=== PATIENT | female | born 1940 | race Caucasian/White ===

== ENCOUNTER 2017-03-06 17:35 | Inpatient (IN) | payer MEDICARE, BC ==
[2017-03-06] VITALS (7 sets, daily range): BP systolic 110–122; BP diastolic 52–81; PULSE 90–104; RESP 16–18; TEMP 100.1–100.7; O2SAT 94–100
[~2017-03-06] VITALS: Ht 160 cm; Wt 89.0 kg
--- NOTE | 2017-03-06 18:28 | RADRPT ---
EXAM DATE/TIME: 03/06/2017 18:21 [facility] COMPARISON: No previous studies available for comparison. INDICATIONS : Short of breath. MEDICAL HISTORY : None. SURGICAL HISTORY : None. ENCOUNTER: Initial ACUITY: 1 day PAIN SCORE: 7/10 LOCATION: Bilateral chest FINDINGS: A single view of the chest demonstrates the lungs to be symmetrically aerated without evidence of mas s, infiltrate or effusion. The cardiomediastinal contours are unremarkable. Osseous structures are intact. CONCLUSION: No acute cardiopulmonary disease demonstrated. All French MD on March 06, 2017 at 18:25 Board Certified Radiologist. This report was verified electronically.
[2017-03-06 18:36] LABS: AUTOMATED NEUTROPHIL # 3.8 TH/MM3 (1.8-7.7); BASOPHIL % 0.1 % (0.0-2.0); EOSINOPHIL # 0.1 TH/MM3 (0-0.4); HEMATOCRIT 32.9 % (35.0-46.0); HEMO FLAGS DIFF FINAL; LYMPHOCYTE # 0.3 TH/MM3 (1.0-4.8); MEAN CELL VOLUME 89.5 FL (80.0-100.0); MEAN CORPUSCULAR HEMOGLOBIN 28.2 PG (27.0-34.0); MEAN CORPUSCULAR HGB CONC 31.6 % (32.0-36.0); MONO % 7.8 % (0.0-8.0); NEUT % 83.1 % (16.0-70.0); PLATELET COUNT 157 TH/MM3 (150-450); RED BLOOD COUNT 3.67 MIL/MM3 (4.00-5.30); WHITE BLOOD COUNT 4.6 TH/MM3 (4.0-11.0)
[2017-03-06 18:53] LABS: ALT (GPT) 35 U/L (10-53)
[2017-03-06 18:55] LABS: ANION GAP 11 MEQ/L (5-15); AST (GOT) 42 U/L (15-37); BICARBONATE 23.2 MEQ/L (21.0-32.0); BLOOD UREA NITROGEN 62 MG/DL (7-18); CHLORIDE 98 MEQ/L (98-107); GLOMERULAR FILTRATION RATE 11 ML/MIN (>89); POTASSIUM 5.1 MEQ/L (3.5-5.1); SODIUM (NA) 132 MEQ/L (136-145)
[2017-03-06 18:56] LABS: ALKALINE PHOSPHATASE 119 U/L (45-117); TOTAL BILIRUBIN ADULT 0.7 MG/DL (0.2-1.0)
--- NOTE | 2017-03-06 19:15 | PD ---
HPI Chief Complaint: Respiratory Distress Time Seen by Provider: 18:12 Travel History International Travel<30 days: No Contact w/Intl Traveler<30days: No Traveled to known affect area: No History of Present Illness HPI 77-year-old female with previous history of COPD, hypertension, presents to the ER today because she is having worsening dyspnea on exertion and shortness of breath. She currently is in moderate respiratory distress, was put on BiPAP. She appears somewhat disoriented. She apparently had ran out of her oxygen at home. Modifying Factors: None Associated Signs & Symptoms: Respiratory distress, disorientation Risk Factors: COPD history PFSH Social History Tobacco Use: Yes Allergies-Medications (Allergen,Severity, Reaction): Coded Allergies: No Known Allergies (Unverified , 03/06/17) Reported Meds & Prescriptions Reported Meds & Active Scripts Active Reported Breo Ellipta Inh (Fluticasone/Vilanterol) 100-25 Mcg/Act Inh 1 Puff INH DAILY Use daily at the same time. Albuterol (Albuterol Sulfate) 2 Mg Tab 2 Mg PO TID Oxycodone (Oxycodone HCl) 10 Mg Tab 10 Mg PO Q4HR Furosemide 40 Mg Tab 40 Mg PO DAILY Quinapril-Hydrochlorothiazide 20-12.5 Mg Tab 1 Tab PO DAILY Aspir-81 (Aspirin) 81 Mg Tabdr Omeprazole 20 Mg Cap Magnesium (Magnesium Oxide) 400 Mg Tablet 250 Mg PO DAILY Cerovite Senior (Multiple Vitamins W/ Minerals) 1 Tab Tab 10 Meq PO DAILY Gabapentin 300 Mg Cap 300 Mg PO BID Metformin (Metformin HCl) 500 Mg Tab 500 Mg PO BIDPC With meals Glimepiride 2 Mg Tab 2 Mg PO BIDAC Review of Systems ROS Limitations: Altered Mental Status Physical Exam Narrative GENERAL: Elderly female patient who is well-developed, in moderate respiratory distress. On BiPAP. Lethargic. SKIN: Focused skin assessment warm/dry. HEAD: Atraumatic. Normocephalic. EYES: Pupils equal and round. No scleral icterus. No injection or drainage. ENT: No nasal bleeding or discharge. Mucous membranes pink and moist. NECK: Trachea midline. No JVD. CARDIOVASCULAR: Regular rate and rhythm. No murmur appreciated. RESPIRATORY: Moderate accessory muscle use. Basilar crackles bilaterally. Breath sounds equal bilaterally. GASTROINTESTINAL: Abdomen soft, non-tender, nondistended. Hepatic and splenic margins not palpable. MUSCULOSKELETAL: No obvious deformities. No clubbing. No cyanosis. Bilateral pitting edema the legs. NEUROLOGICAL: Lethargic. No obvious cranial nerve deficits. Motor grossly within normal limits. Normal speech. PSYCHIATRIC: Appropriate mood and affect; insight and judgment normal. Data Data Last Documented VS Vital Signs Date Time Temp Pulse Resp B/P Pulse Ox O2 Delivery O2 Flow Rate FiO2 03/06/17 19:33 96 BiPAP 30 03/06/17 19:33 94 03/06/17 19:33 03/06/17 17:40 100.1 Orders Complete Blood Count With Diff (03/06/17 18:09) Comprehensive Metabolic Panel (03/06/17 18:09) B-Type Natriuretic Peptide (03/06/17 18:09) Iv Access Insert/Monitor (03/06/17 18:09) Ecg Monitoring (03/06/17 18:09) Oximetry (03/06/17 18:09) Oxygen Administration (03/06/17 18:09) Chest, Single Ap (03/06/17 18:09) Lactic Acid Sepsis Protocol (03/06/17 18:12) Blood Culture (03/06/17 18:12) Arterial Blood Gas (Abg) (03/06/17 ) Resp Bipap / Cpap Non Invas Vt (03/06/17 ) Furosemide Inj (Lasix Inj) (03/06/17 19:30) Ventilation & Perfusion Scan (03/06/17 19:16) Methylprednisolone So Succ Inj (Solumedr (03/06/17 19:30) Albuterol-Ipratropium Neb (Duoneb Neb) (03/06/17 19:30) Labs Laboratory Tests Test 03/06/17 03/06/17 03/06/17 18:10 18:26 18:32 White Blood Count 4.6 TH/MM3 Red Blood Count 3.67 MIL/MM3 Hemoglobin 10.4 GM/DL Hematocrit 32.9 % Mean Corpuscular Volume 89.5 FL Mean Corpuscular Hemoglobin 28.2 PG Mean Corpuscular Hemoglobin 31.6 % Concent Red Cell Distribution Width 17.0 % Platelet Count 157 TH/MM3 Mean Platelet Volume 8.4 FL Neutrophils (%) (Auto) 83.1 % Lymphocytes (%) (Auto) 7.0 % Monocytes (%) (Auto) 7.8 % Eosinophils (%) (Auto) 2.0 % Basophils (%) (Auto) 0.1 % Neutrophils # (Auto) 3.8 TH/MM3 Lymphocytes # (Auto) 0.3 TH/MM3 Monocytes # (Auto) 0.4 TH/MM3 Eosinophils # (Auto) 0.1 TH/MM3 Basophils # (Auto) 0.0 TH/MM3 CBC Comment DIFF FINAL Differential Comment Sodium Level 132 MEQ/L Potassium Level 5.1 MEQ/L Chloride Level 98 MEQ/L Carbon Dioxide Level 23.2 MEQ/L Anion Gap 11 MEQ/L Blood Urea Nitrogen 62 MG/DL Creatinine 4.04 MG/DL Estimat Glomerular Filtration 11 ML/MIN Rate Random Glucose 165 MG/DL Calcium Level 8.3 MG/DL Total Bilirubin 0.7 MG/DL Aspartate Amino Transf 42 U/L (AST/SGOT) Alanine Aminotransferase 35 U/L (ALT/SGPT) Alkaline Phosphatase 119 U/L B-Type Natriuretic Peptide 80 PG/ML Total Protein 7.2 GM/DL Albumin 3.1 GM/DL Blood Gas Puncture Site LT RADIAL Blood Gas Patient Temperature 98.6 Blood Gas HCO3 22 mmol/L Blood Gas Base Excess -3.7 mmol/L Blood Gas Oxygen Saturation 98 % Arterial Blood pH 7.30 Arterial Blood Partial 45 mmHg Pressure CO2 Arterial Blood Partial 244 mmHG Pressure O2 Arterial Blood Oxygen Content 15.4 Vol % Arterial Blood 1.0 % Carboxyhemoglobin Arterial Blood Methemoglobin 0.6 % Blood Gas Hemoglobin 10.8 G/DL Oxygen Delivery Device BIPAP Blood Gas Ventilator Setting IPAP 10/EPAP 5 Blood Gas Inspired Oxygen 60 % Lactic Acid Level 1.1 mmol/L MDM Medical Decision Making Medical Screen Exam Complete: Yes Emergency Medical Condition: Yes Medical Record Reviewed: Yes Interpretation(s) Last 24 hours Impressions Chest X-Ray 03/06/17 0579 Signed Impressions: Service Date/Time: Monday, March 06, 2017 18:21 - CONCLUSION: No acute cardiopulmonary disease demonstrated. All French MD Laboratory Tests Test 03/06/17 18:10 Red Blood Count 3.67 MIL/MM3 (4.00-5.30) Hemoglobin 10.4 GM/DL (11.6-15.3) Hematocrit 32.9 % (35.0-46.0) Mean Corpuscular Hemoglobin 31.6 % Concent (32.0-36.0) Neutrophils (%) (Auto) 83.1 % (16.0-70.0) Lymphocytes (%) (Auto) 7.0 % (9.0-44.0) Lymphocytes # (Auto) 0.3 TH/MM3 (1.0-4.8) Sodium Level 132 MEQ/L (136-145) Blood Urea Nitrogen 62 MG/DL (7-18) Creatinine 4.04 MG/DL (0.50-1.00) Estimat Glomerular Filtration 11 ML/MIN (>89) Rate Random Glucose 165 MG/DL (74-106) Calcium Level 8.3 MG/DL (8.5-10.1) Aspartate Amino Transf 42 U/L (15-37) (AST/SGOT) Alkaline Phosphatase 119 U/L (45-117) Albumin 3.1 GM/DL (3.4-5.0) Differential Diagnosis Respiratory distress, lethargicCHF versus pneumonia versus COPD exacerbation Narrative Course Patient was given Lasix for her edema and Solu-Medrol and nebulizers were also given after chest x-ray did not show any signs of CHF. At this point, considering patient has recently traveled there is concern about possible underlying PE and VQ scan was also ordered. Patient's lab work shows significant renal issues and it is unclear whether this is new or old since patient has never been here before. Physician Communication Physician Communication Case is signed out to Dr. Dewey at 7:30 PM pending VQ scan and admitted. Diagnosis Primary Impression: Respiratory distress Additional Impression: Acute renal failure Admitting Information Admitting Physician Requests: Admit Carrie Arroyo MD Mar 06, 2017 19:15
[2017-03-06 19:22] LABS: BLOOD GAS BASE EXCESS -3.7 mmol/L (-2-2); BLOOD GAS HCO3 22 mmol/L (22-26); BLOOD GAS METHEMOGLOBIN 0.6 % (0-2); BLOOD GAS O2 HGB SATURATION 98 % (90-100); BLOOD GAS OXYGEN CONTENT 15.4 Vol % (12.0-20.0); BLOOD GAS PCO2 45 mmHg (38-42); BLOOD GAS PO2 244 mmHG (61-120); BLOOD GAS TOTAL HGB 10.8 G/DL (12.0-16.0); CRITICAL VALUE NO; TEMP CORR TO 98.6
[2017-03-06 19:23] LABS: DRAW SITE LT RADIAL; FIO2 60 %; NUMBER OF ARTERIAL PUNCTURES 1; OXYGEN DEVICE BIPAP; STAT YES; ULNAR PULSE PRESENT; VENT SETTINGS IPAP 10/EPAP 5
[2017-03-06] MEDS ORDERED: FURO40TA PO (19:28)
[2017-03-06] MEDS ORDERED: METF500T PO (19:28)
[2017-03-06] MEDS ORDERED: GABA300C5 PO ×2 (19:28→22:06)
[2017-03-06] MEDS ORDERED: ASPI81TA81 (19:28)
[2017-03-06] MEDS ORDERED: CEROTAB2 PO (19:28)
[2017-03-06] MEDS ORDERED: OMEP20CA2 (19:28)
[2017-03-06] MEDS ORDERED: GLIM2TAB PO (19:28)
[2017-03-06] MEDS ORDERED: FLUT1INH INH (19:28)
[2017-03-06] MEDS ORDERED: ALBU2TAB4 PO (19:28)
[2017-03-06] MEDS ORDERED: OXYC-395 PO (19:28)
[2017-03-06] MEDS ORDERED: MAGN400T24 PO (19:28)
[2017-03-06] MEDS ORDERED: QUIN20TA2 PO (19:28)
[2017-03-06] MEDS ORDERED: FUROSEMIDE 40 MG/4 ML VIAL IV PUSH ONE (19:30)
[2017-03-06] MEDS ORDERED: methylPREDNISolone SOD SUCC 125 MG/2 ML VIAL IV PUSH ONE (19:30)
[2017-03-06] MEDS: RESP: ALBUTEROL 2.5 MG/IPRATROPIUM 0.5 MG NEB (SCH) INH ×2 (19:35→19:36)
--- NOTE | 2017-03-06 20:41 | RADRPT ---
EXAM DATE/TIME: 03/06/2017 20:01 [facility] COMPARISON: No previous studies available for comparison. INDICATIONS : Altered mental status. RADIATION DOSE: 38.08 CTDIvol (mGy) MEDICAL HISTORY : Chronic obstructive pulmonary disease. Diabetes mellitus type 2. Hypertension.Skin cancer. SURGICAL HISTORY : Cholecystectomy. Coronary stent. ENCOUNTER: Initial ACUITY: 1 day PAIN SCALE: 0/10 LOCATION: cranial TECHNIQUE: Multiple contiguous axial images were obtained of the head. Using automated exposure control and adj ustment of the mA and/or kV according to patient size, radiation dose was kept as low as reasonably a chievable to obtain optimal diagnostic quality images. FINDINGS: CEREBRUM: The ventricles are normal for age. No evidence of midline shift, mass lesion, hemorrhage or acute in farction. No extra-axial fluid collections are seen. POSTERIOR FOSSA: The cerebellum and brainstem are intact. The 4th ventricle is midline. The cerebellopontine angle i s unremarkable. EXTRACRANIAL: The visualized portion of the orbits is intact. Plate device in the inferior medial left orbit. SKULL: The calvaria is intact. No evidence of skull fracture. CONCLUSION: No acute findings in the brain. Vahid Wiseman MD on March 06, 2017 at 20:38 Board Certified Radiologist. This report was verified electronically.
--- NOTE | 2017-03-06 21:08 | PD ---
Data Data Last Documented VS Vital Signs Date Time Temp Pulse Resp B/P Pulse Ox O2 Delivery O2 Flow Rate FiO2 03/06/17 21:43 100.7 104 18 118/60 99 BiPAP 30 Orders Complete Blood Count With Diff (03/06/17 18:09) Comprehensive Metabolic Panel (03/06/17 18:09) B-Type Natriuretic Peptide (03/06/17 18:09) Iv Access Insert/Monitor (03/06/17 18:09) Ecg Monitoring (03/06/17 18:09) Oximetry (03/06/17 18:09) Oxygen Administration (03/06/17 18:09) Chest, Single Ap (03/06/17 18:09) Lactic Acid Sepsis Protocol (03/06/17 18:12) Blood Culture (03/06/17 18:12) Arterial Blood Gas (Abg) (03/06/17 ) Resp Bipap / Cpap Non Invas Vt (03/06/17 ) Furosemide Inj (Lasix Inj) (03/06/17 19:30) Ventilation & Perfusion Scan (03/06/17 19:16) Methylprednisolone So Succ Inj (Solumedr (03/06/17 19:30) Albuterol-Ipratropium Neb (Duoneb Neb) (03/06/17 19:30) Ct Brain W/O Iv Contrast(Rout) (03/06/17 19:46) Vancomycin Inj (Vancomycin Inj) (03/06/17 21:15) Piperacil-Tazo 2.25 Gm Premix (Zosyn 2.2 (03/06/17 22:30) Urinary Catheter Management MICA.Q8H (03/06/17 21:15) Urinalysis - C+S If Indicated (03/06/17 21:19) Ct Thorax/ Chest Wo Iv Contras (03/06/17 ) Admit Order (Ed Use Only) (03/06/17 ) Labs Laboratory Tests Test 03/06/17 03/06/17 03/06/17 03/06/17 18:10 18:26 18:32 21:40 White Blood Count 4.6 TH/MM3 Red Blood Count 3.67 MIL/MM3 Hemoglobin 10.4 GM/DL Hematocrit 32.9 % Mean Corpuscular Volume 89.5 FL Mean Corpuscular Hemoglobin 28.2 PG Mean Corpuscular Hemoglobin 31.6 % Concent Red Cell Distribution Width 17.0 % Platelet Count 157 TH/MM3 Mean Platelet Volume 8.4 FL Neutrophils (%) (Auto) 83.1 % Lymphocytes (%) (Auto) 7.0 % Monocytes (%) (Auto) 7.8 % Eosinophils (%) (Auto) 2.0 % Basophils (%) (Auto) 0.1 % Neutrophils # (Auto) 3.8 TH/MM3 Lymphocytes # (Auto) 0.3 TH/MM3 Monocytes # (Auto) 0.4 TH/MM3 Eosinophils # (Auto) 0.1 TH/MM3 Basophils # (Auto) 0.0 TH/MM3 CBC Comment DIFF FINAL Differential Comment Sodium Level 132 MEQ/L Potassium Level 5.1 MEQ/L Chloride Level 98 MEQ/L Carbon Dioxide Level 23.2 MEQ/L Anion Gap 11 MEQ/L Blood Urea Nitrogen 62 MG/DL Creatinine 4.04 MG/DL Estimat Glomerular Filtration 11 ML/MIN Rate Random Glucose 165 MG/DL Calcium Level 8.3 MG/DL Total Bilirubin 0.7 MG/DL Aspartate Amino Transf 42 U/L (AST/SGOT) Alanine Aminotransferase 35 U/L (ALT/SGPT) Alkaline Phosphatase 119 U/L B-Type Natriuretic Peptide 80 PG/ML Total Protein 7.2 GM/DL Albumin 3.1 GM/DL Blood Gas Puncture Site LT RADIAL Blood Gas Patient Temperature 98.6 Blood Gas HCO3 22 mmol/L Blood Gas Base Excess -3.7 mmol/L Blood Gas Oxygen Saturation 98 % Arterial Blood pH 7.30 Arterial Blood Partial 45 mmHg Pressure CO2 Arterial Blood Partial 244 mmHG Pressure O2 Arterial Blood Oxygen Content 15.4 Vol % Arterial Blood 1.0 % Carboxyhemoglobin Arterial Blood Methemoglobin 0.6 % Blood Gas Hemoglobin 10.8 G/DL Oxygen Delivery Device BIPAP Blood Gas Ventilator Setting IPAP 10/EPAP 5 Blood Gas Inspired Oxygen 60 % Lactic Acid Level 1.1 mmol/L Urine Color YELLOW Urine Turbidity HAZY Urine pH 5.0 Urine Specific [place] 1.015 Urine Protein 30 mg/dL Urine Glucose (UA) NEG mg/dL Urine Ketones NEG mg/dL Urine Occult Blood NEG Urine Nitrite NEG Urine Bilirubin NEG Urine Urobilinogen LESS THAN 2.0 MG/DL Urine Leukocyte Esterase NEG Urine RBC 1 /hpf Urine WBC 4 /hpf Urine Squamous Epithelial <1 /hpf Cells Urine Bacteria RARE /hpf Urine Mucus FEW /lpf Microscopic Urinalysis Comment CULT NOT INDICATED Urine Eosinophils NONE SEEN /HPF Urine Random Creatinine 102.9 MG/DL Urine Random Sodium 42 MEQ/L [facility] Supervised Visit with MONET: No Narrative Course Patient care assumed from Dr. Arroyo at 1900. This is a 77-year-old female who presents the emergency department with altered mental status and shortness of breath. Has a history of COPD from occupational chemical exposure in the past. Per the daughter they're visiting from out of state and recently had a long car ride. Dr. Arroyo had recommended a follow-up a VQ scan already ordered reassess the patient and consider for admission. The patient has been febrile, my initial evaluation is fairly somnolent on BiPAP. Her overall GCS is [id number]. She is also having waxing and waning mental status. Initial workup is negative for source of fever. V/Q scan did show ventilation defect without a ventilation perfusion mismatch. Low risk for pulmonary embolism. The patient underwent a noncontrast CT of the chest which did show suspicion for pneumonia. The patient was started on broad-spectrum antibiotics. Given that she is altered with need for BiPAP ventilation the patient was discussed with Dr. Javed for admission who is agreeable. Critical Care Narrative Aggregate critical care time was 35 minutes. Time to perform other separately billable procedures was not included in the critical care time. My time did not include minutes spent treating any other patients simultaneously or on activities that did not directly contribute to the patient's treatment. The services I provided to this patient were to treat and/or prevent clinically significant deterioration that could result in: , disability, organ failure. I provided critical care services requiring my management, as noted below: Chart data review, documentation time, medication orders and management, vital sign assessments/reviewing monitor data, ordering and reviewing lab tests, ordering and interpreting/reviewing x-rays and diagnostic studies, care of the patient and discussion of the patient with the admitting physicians. Diagnosis Primary Impression: Respiratory distress Additional Impression: Acute renal failure Qualified Code: N17.9 - Acute renal failure, unspecified acute renal failure type Admitting Information Admitting Physician Requests: Admit Condition: Stable Salbador Dewey MD Mar 06, 2017 21:07
--- NOTE | 2017-03-06 21:09 | RADRPT ---
EXAM DATE/TIME: 03/06/2017 20:34 [facility] COMPARISON: CHEST SINGLE AP, March 06, 2017, 18:21. INDICATIONS : Dyspnea and disoriented. DOSE: 8.8 mCi Tc99m MAA IV 1.2 mCi Tc99m DTPA aerosol MEDICAL HISTORY : Chronic obstructive pulmonary disease. Hypertension. Diabetes mellitus type 2. Smoker. SURGICAL HISTORY : Cholecystectomy. ENCOUNTER: Initial ACUITY: 1 day PAIN SCALE: 0/10 LOCATION: chest TECHNIQUE: Following five minutes of tidal breathing of DTPA aerosol, planar images of the lungs were performed in eight projections. The patient was then injected with MAA, and eight-view perfusion scan was perf ormed. FINDINGS: There is moderate central deposition of aerosol in the hilar region. There is delivery of aerosol to the periphery of the lobe left lung and the periphery of the right mid and upper lung. There are mu ltiple subsegmental ventilatory defects involving the left lung base.. On the perfusion scan, there is activity seen to the periphery of the left lung. At the right lung b ase, there is some decreased perfusion, however, the perfusion defects are smaller than the ventilato ry defects in the same segments. No mismatched perfusion defects seen. CONCLUSION: 1. Matched ventilation/perfusion defects in the right lung base with the ventilatory defects larger t you the perfusion defects. 2. No mismatched perfusion defects. 3. The overall impression is of low probability pulmonary embolism. Vahid Wiseman MD on March 06, 2017 at 21:03 Board Certified Radiologist. This report was verified electronically.
[2017-03-06] MEDS ORDERED: VANCOMYCIN INJ 1,000 MG in SODIUM CHLOR 0.9% 250 ML INJ 250 ML IV ONE (21:15)
[2017-03-06 21:58] LABS: BACTERIA, URINE RARE /hpf; BLOOD, URINE NEG (NEG); COMMENT (UR) CULT NOT INDICATED; CULTURE IF INDICATED CULT NOT INDICATED; GLUCOSE,URINE NEG (NEG); KETONE, URINE NEG (NEG); MUCUS URINE FEW /lpf (OCC); NITRITE,URINE NEG (NEG); SQUAMOUS EPITHELIAL CELL URINE <1 /hpf (0-5); URINE COLOR YELLOW (YELLW/STRAW)
[2017-03-06] MEDS ORDERED: CARV25TA PO (22:06)
[2017-03-06] MEDS ORDERED: ATOR40TA16 PO (22:06)
[2017-03-06] MEDS ORDERED: MOBI15TA PO (22:06)
[2017-03-06] MEDS ORDERED: RESP: ALBUTEROL 2.5 MG/3 ML NEB (PRN) NEB (22:15)
[2017-03-06] MEDS ORDERED: PIPERACIL-TAZO 2.25 GM PREMIX 50 ML IV ONE (22:30)
[2017-03-06] MEDS: RESP: ALBUTEROL 2.5 MG/IPRATROPIUM 0.5 MG NEB (SCH) NEB (22:39)
--- NOTE | 2017-03-06 22:43 | HHI.HP ---
HPI Service Critical Care Medicine Primary Care Physician Non-Staff Admission Diagnosis Encephalopathy, Sepsis, Hypoxia. Diagnosis: Travel History International Travel<30 Days: No Contact w/Intl Traveler <30 Da: No Traveled to Known Affected Are: No History of Present Illness 77 yo WF with PMH of COPD on 4 L home O2, HTN, DM, HLD, peripheral neuropathy, CAD with prior stents who [place] [facility] [place] breath. Her daughter states she was not feeling well since 03/03, though may be related to allergies. Today she has been travelling in a car for about 8 hours as she and her family drove from [facility]. She started having a cough today, productive of brown sputum. Did not check her temperature. Denied chest pain. She got to the hotel and became dyspneic and could not get up from a bench where she stopped to rest. Her daughter states she was lethargic and confused. Sats were 92% in the field. She was placed on Bipap on arrival and administered Lasix 40 mg IV and Solu-Medrol 125 mg IV and DuoNeb. After on Bipap ~ 45 min ABG demonstrated hypercapnea with pH 7.30/PaCO2 45/PA O2 to 44. She remains on BiPAP 10 over 5 with FiO2 35%. Her mental status has improved significantly per discussion with RN in patient's daughter. She had a head CT that was negative. VQ scan showed low probability for PE. There is a ventilatory defect in the right base. CXR showed no significant infiltrate. CT chest noncontrast is pending. She denies chest pain or hemoptysis. She does not carry the diagnosis of CHF. She has chronic bipedal edema. Her daughter states her edema is actually currently better than usual. Review of Systems ROS Limitations: Clinical Condition Past Family Social History Allergies: Coded Allergies: No Known Allergies (Unverified , 03/06/17) Past Medical History COPD felt to be secondary to secondhand smoke exposure and occupational exposure. On 4 L nasal cannula. Followed by bag shaker in [place]. Diabetes Hypertension Hypercholesterolemia Peripheral neuropathy Coronary artery disease. Reportedly she has never experienced a myocardial infarction. She has had 2 stents about 10-15 years ago. Past Surgical History Cholecystectomy Bilateral knee arthroplasty Left rotator cuff repair Left hip arthroplasty ORIF of the orbit with metal plates Multiple hiatal hernia surgeries Reported Medications Quinapril/HCTZ 20/12.5 one by mouth daily Magnesium oxide 250 g by mouth daily Gabapentin 300 mg by mouth daily Albuterol 2 mg by mouth 3 times a day Carvedilol 25 mg by mouth twice a day Metformin 500 mg by mouth twice a day 301 puff inhaled daily Atorvastatin 40 g by mouth daily at bedtime Lasix 40 g by mouth daily Multivitamin 10 mEq by mouth daily Aspirin 81 mg by mouth daily Mobic 15 mg by mouth daily Oxycodone 10 g by mouth every 4 hours when necessary pain Omeprazole 20 mg by mouth daily Glimepiride 2 mg by mouth twice a day Family History She is unable to provide family medical history Social History She is a lifetime nonsmoker. She had significant secondhand smoke exposure from her second No alcohol or illicit drug use She used to work in a [employer] and reportedly has chemical exposure which is felt to contribute to her lung disease She is from [facility] Physical Exam Vital Signs Vital Signs Date Time Temp Pulse Resp B/P Pulse Ox O2 Delivery O2 Flow Rate FiO2 03/06/17 21:43 100.7 104 18 118/60 99 BiPAP 30 03/06/17 21:28 93 16 110/52 94 BiPAP 03/06/17 19:35 95 30 03/06/17 19:33 96 BiPAP 30 03/06/17 19:33 94 03/06/17 19:33 90 BiPAP 03/06/17 17:40 100 100 03/06/17 17:40 100.1 100 122/81 Physical Exam Pulse 95 blood pressure 110/52 sats 98% on BiPAP 10 over 5 with respiratory rate around 11 FiO2 35% GENERAL: Obese well-developed female who is laying in the ED stretcher on BiPAP. SKIN: Warm and dry, well perfused. HEAD: Atraumatic. Normocephalic. EYES: Pupils equal and round 2 mm reactive bilaterally. No scleral icterus. No injection or drainage. ENT: BiPAP mask in place. NECK: Trachea midline. No JVD appreciated CARDIOVASCULAR: Regular rate and rhythm, sinus rhythm on the monitor without murmurs rubs or gallops appreciated. Loud lung sounds mask cardiac exam somewhat. RESPIRATORY: Marked prolonged expiratory phase with coarse expiratory breath sounds. No Rales or rhonchi. GASTROINTESTINAL: Abdomen obese, soft, nontender nondistended. Suprapubic scar well-healed. : Castillo in place with yellow urine output. MUSCULOSKELETAL: Extremities without clubbing, cyanosis. 2+ pitting edema bilateral lower extremities. No calf tenderness. NEUROLOGICAL: Awake and alert on Bipap. Speech muffled by Bipap but otherwise sounds normal. Moves all extremities spontaneously and to commands. Strength is 5 out of 5 without focal deficit. Sensation intact. She is oriented to hospital. Thought the year was 2013. Recognizes her daughter Laboratory Laboratory Tests Test 03/06/17 03/06/17 03/06/17 03/06/17 18:10 18:26 18:32 21:40 White Blood Count 4.6 Red Blood Count 3.67 Hemoglobin 10.4 Hematocrit 32.9 Mean Corpuscular Volume 89.5 Mean Corpuscular Hemoglobin 28.2 Mean Corpuscular Hemoglobin 31.6 Concent Red Cell Distribution Width 17.0 Platelet Count 157 Mean Platelet Volume 8.4 Neutrophils (%) (Auto) 83.1 Lymphocytes (%) (Auto) 7.0 Monocytes (%) (Auto) 7.8 Eosinophils (%) (Auto) 2.0 Basophils (%) (Auto) 0.1 Neutrophils # (Auto) 3.8 Lymphocytes # (Auto) 0.3 Monocytes # (Auto) 0.4 Eosinophils # (Auto) 0.1 Basophils # (Auto) 0.0 CBC Comment DIFF FINAL Differential Comment Sodium Level 132 Potassium Level 5.1 Chloride Level 98 Carbon Dioxide Level 23.2 Anion Gap 11 Blood Urea Nitrogen 62 Creatinine 4.04 Estimat Glomerular Filtration 11 Rate Random Glucose 165 Calcium Level 8.3 Total Bilirubin 0.7 Aspartate Amino Transf 42 (AST/SGOT) Alanine Aminotransferase 35 (ALT/SGPT) Alkaline Phosphatase 119 B-Type Natriuretic Peptide 80 Total Protein 7.2 Albumin 3.1 Blood Gas Puncture Site LT RADIAL Blood Gas Patient Temperature 98.6 Blood Gas HCO3 22 Blood Gas Base Excess -3.7 Blood Gas Oxygen Saturation 98 Arterial Blood pH 7.30 Arterial Blood Partial 45 Pressure CO2 Arterial Blood Partial 244 Pressure O2 Arterial Blood Oxygen Content 15.4 Arterial Blood 1.0 Carboxyhemoglobin Arterial Blood Methemoglobin 0.6 Blood Gas Hemoglobin 10.8 Oxygen Delivery Device BIPAP Blood Gas Ventilator Setting IPAP 10/EPAP 5 Blood Gas Inspired Oxygen 60 Lactic Acid Level 1.1 Urine Color YELLOW Urine Turbidity HAZY Urine pH 5.0 Urine Specific [place] 1.015 Urine Protein 30 Urine Glucose (UA) NEG Urine Ketones NEG Urine Occult Blood NEG Urine Nitrite NEG Urine Bilirubin NEG Urine Urobilinogen LESS THAN 2.0 Urine Leukocyte Esterase NEG Urine RBC 1 Urine WBC 4 Urine Squamous Epithelial <1 Cells Urine Bacteria RARE Urine Mucus FEW Microscopic Urinalysis Comment CULT NOT INDICATED Date/Time Procedure Status Source Growth 03/06/17 18:20 Aerobic Blood Culture Received Blood Peripheral Pending 03/06/17 18:20 Anaerobic Blood Culture Received Blood Peripheral Pending Result Diagram: 03/06/17180903/06/17 1810 Assessment and Plan Assessment and Plan NEURO: Acute encephalopathy likely secondary to hypercapnia (improving) Peripheral neuropathy CT brain negative Held gabapentin 300 tid for now due to decreased mental status. When resume, will need to adjust dose for renal insufficiency. Hold oxycodone 10 q4 for now. Use 5 q6 hours prn, hold for excess sedation. RESP: Acute hypercapnic respiratory failure COPD Second hand smoke exposure Community acquired pneumonia BiPAP 10/5 35% and wean FIO2 as tolerated. Solu-Medrol 40 mg IV every 8. DuoNeb every 6 hours. Albuterol q2 hours prn wheezing. Abx as per below VQ low prob for PE 03/06 CT chest - bilateral infiltrates c/w pneumonia CV: Coronary artery disease with prior stents Hypertension Hyperlipidemia Follow-up 2-D echo BNP 80 Serial cardiac markers and EKG. Troponin 0.02. Aspirin daily Continue statin Hold coreg for now until determine hemodynamic stability Received Lasix 40 mg IV in the emergency department. Does not appear to require further diuresis. GI: Obesity Mild AST elevation. Hypoalbuminemia Nothing by mouth currently while on BiPAP. f/u abdominal u/s . FEN/RENAL: Hyponatremia Renal insufficiency ?chronicity Patient may have CKD but she is unaware of any history of that. Checked Urine eos, CPK, Fena 1.3 c/w intrinsic renal disease/ATN. Obtain renal u/s. Castillo in place. Monitor intake and output. Monitor electrolytes and replace as indicated. On 0.9 NaCl at 100 mm per hour ID: Acute right lower lobe pneumonia Received vancomycin and Zosyn in the emergency department. Will continue on Zosyn 2.25 IV every 6 hours adjusted for renal function, azithromycin for atypical coverage. Follow-up blood cultures. Obtain urine Legionella and pneumococcal antigen, sputum culture. UA negative for evidence of infection. HEME: Anemia of unknown chronicity Followed bilateral lower extremity ultrasound ENDO: Diabetes mellitus Hold metformin and glimepiride. Medium dose insulin sliding scale q4 hours. Monitor closely while on steroids, may need additional insulin coverage and/or quick steroid taper. PROPH: Heparin 5000 subcutaneous q12 for DVT prophylaxis. Protonix 40 mg daily for stress ulcer prophylaxis. ACCESS: Peripheral IV providing adequate access at this time. Daughter updated at bedside. Discussed with Dr. Dewey, ICU charge nurse, ED RN, RT. Full code CCT 55 minutes exclusive of separately billable procedures. Ritu Javed MD Mar 06, 2017 22:43
[2017-03-06] MEDS ORDERED: MISCELLANEOUS NURSING INFORMATION XX SCH (22:45)
[2017-03-06] MEDS ORDERED: oxyCODONE/ACETAMINOPHEN 5 MG/325 MG TAB PO PRN (22:45)
[2017-03-06] MEDS ORDERED: SODIUM CHLORIDE 0.9% FLUSH 10 ML FLUSH PRN (22:45)
[2017-03-06] MEDS ORDERED: SENNOSIDES 8.6 MG TAB PO PRN (22:45)
[2017-03-06] MEDS ORDERED: MAGNESIUM HYDROXIDE SUSP 30 ML CUP PO PRN (22:45)
[2017-03-06] MEDS ORDERED: ACETAMINOPHEN 325 MG TAB PO PRN (22:45)
[2017-03-06] MEDS ORDERED: CHLORHEXIDINE GLUCONATE 2 % 1 PACK (2 CLOTHS) TOP PRN (22:45)
[2017-03-06] MEDS ORDERED: BISACODYL 10 MG SUPP RECTAL PRN (22:45)
[2017-03-06] MEDS ORDERED: LACTULOSE SYRUP 20 GM/30 ML CUP PO PRN (22:45)
--- NOTE | 2017-03-06 23:19 | RADRPT ---
EXAM DATE/TIME: 03/06/2017 23:03 [facility] COMPARISON: No previous studies available for comparison. INDICATIONS : Dyspnea, cough. RADIATION DOSE: 8.71 CTDIvol (mGy) MEDICAL HISTORY : Diabetes mellitus type 2. Cardiovascular disease SURGICAL HISTORY : Cholecystectomy. ENCOUNTER: Initial ACUITY: 1 day PAIN SCALE: 5/10 LOCATION: chest TECHNIQUE: Volumetric scanning of the chest was performed. Using automated exposure control and adjustment of t he mA and/or kV according to patient size, radiation dose was kept as low as reasonably achievable to obtain optimal diagnostic quality images. FINDINGS: There are parenchymal infiltrates bilaterally within the lower lobes, right upper lobe parts of the r ight middle lobe. There is no pleural effusion. No appreciable pathological adenopathy is seen with in the mediastinum. Coronary artery calcifications are seen typically seen with CAD and need to be ev aluated clinically. Large hiatal hernia is seen. CONCLUSION: Bilateral infiltrates suspicious for pneumonia. Milan Huston MD on March 06, 2017 at 23:14 Board Certified Radiologist. This report was verified electronically.
[2017-03-06] MEDS ORDERED: DEXTROSE 50% IN WATER 50 ML VIAL(D50) IV PRN (23:45)
[2017-03-06] MEDS ORDERED: GLUCAGON 1 MG/ML VIAL OTHER PRN (23:45)
[2017-03-06] MEDS ORDERED: INSULIN ASPART SUPPLEMENTAL SCALE SQ SCH (23:45)
[2017-03-07] VITALS (23 sets, daily range): BP systolic 102–132; BP diastolic 54–69; PULSE 64–90; RESP 7–22; TEMP 97.2–98.9; O2SAT 93–100
[2017-03-07] MEDS: HEPARIN SODIUM - SQ 10,000 UNITS/ML VIAL SQ SCH ×3 (00:26→21:49)
[2017-03-07] MEDS: SODIUM CHLOR 0.9% 1000 ML INJ 1,000 ML IV SCH ×3 (00:28→18:33)
[2017-03-07] MEDS: ASPIRIN 81 MG CHEW TAB CHEW SCH ×2 (00:28→10:19)
[2017-03-07] MEDS ORDERED: INSULIN ASPART SUPPLEMENTAL SCALE SQ SCH (02:15)
[2017-03-07] MEDS ORDERED: DEXTROSE 50% IN WATER 50 ML VIAL(D50) IV PRN (02:15)
[2017-03-07] MEDS ORDERED: GLUCAGON 1 MG/ML VIAL OTHER PRN (02:15)
[2017-03-07] MEDS: AZITHROMYCIN INJ 500 MG in SODIUM CHLOR 0.9% 250 ML INJ 250 ML IV SCH ×2 (02:46→21:49)
[2017-03-07] MEDS: RESP: ALBUTEROL 2.5 MG/IPRATROPIUM 0.5 MG NEB (SCH) NEB ×4 (03:28→21:15)
[2017-03-07] MEDS: CHLORHEXIDINE GLUCONATE 2 % 1 PACK (2 CLOTHS) TOP SCH (03:43)
[2017-03-07] MEDS: PIPERACIL-TAZO 2.25 GM PREMIX 50 ML IV SCH ×4 (03:43→21:53)
[2017-03-07 04:32] LABS: AUTOMATED NEUTROPHIL # 7.9 TH/MM3 (1.8-7.7); BASOPHIL % 0.1 % (0.0-2.0); HEMATOCRIT 27.3 % (35.0-46.0); LYMPH % 3.7 % (9.0-44.0); LYMPHOCYTE # 0.3 TH/MM3 (1.0-4.8); MEAN CELL VOLUME 86.9 FL (80.0-100.0); MEAN CORPUSCULAR HEMOGLOBIN 29.4 PG (27.0-34.0); MEAN CORPUSCULAR HGB CONC 33.9 % (32.0-36.0); MONO % 2.9 % (0.0-8.0); NEUT % 93.3 % (16.0-70.0); PLATELET COUNT 167 TH/MM3 (150-450); RED BLOOD COUNT 3.15 MIL/MM3 (4.00-5.30); RED CELL DISTRIBUTION WIDTH 16.8 % (11.6-17.2); WHITE BLOOD COUNT 8.5 TH/MM3 (4.0-11.0)
[2017-03-07 04:36] LABS: HEMO FLAGS AUTO DIFF
--- NOTE | 2017-03-07 04:57 | RADRPT ---
EXAM DATE/TIME: 03/07/2017 04:28 [facility] COMPARISON: CT THORAX W/O CONTRAST, March 06, 2017, 23:03. CHEST SINGLE AP, March 06, 2017, 18:21. INDICATIONS : Shortness of breath. possible pulmonary disease. MEDICAL HISTORY : None. SURGICAL HISTORY : None. ENCOUNTER: Subsequent ACUITY: 2 days PAIN SCORE: 4/10 LOCATION: Bilateral chest FINDINGS: Mild left lung base atelectasis and/or infiltrate is seen. There is also slight haziness to the right middle lobe and perivascular structures not significantly changed The rest of the examination has no t significantly changed. CONCLUSION: No appreciable change in bilateral atelectasis and/or infiltrate mainly in the left lung base. Milan Huston MD on March 07, 2017 at 4:53 Board Certified Radiologist. This report was verified electronically.
[2017-03-07 05:07] LABS: ANION GAP 10 MEQ/L (5-15); BICARBONATE 24.6 MEQ/L (21.0-32.0); BLOOD UREA NITROGEN 64 MG/DL (7-18); CHLORIDE 100 MEQ/L (98-107); CREATINE KINASE 313 U/L (26-192); GLOMERULAR FILTRATION RATE 10 ML/MIN (>89); MAGNESIUM 2.5 MG/DL (1.5-2.5); POTASSIUM 5.3 MEQ/L (3.5-5.1); SODIUM (NA) 135 MEQ/L (136-145)
[2017-03-07 05:21] LABS: CKMB 4.2 NG/ML (0.5-3.6)
[2017-03-07] MEDS: methylPREDNISolone SOD SUCC 40 MG/1 ML VIAL IV PUSH SCH ×2 (06:00→16:58)
[2017-03-07] MEDS ORDERED: methylPREDNISolone SOD SUCC 40 MG/1 ML VIAL IV PUSH SCH (06:00)
[2017-03-07 06:51] LABS: BANDS 27 % (0-6); METAMYELOCYTES 2 % (0-1); POLYS (SEG NEUTROPHILS) 65 % (16-70); WBC DIFF SAMPLE 100
[2017-03-07 06:53] LABS: SCAN/DIFF FINAL DIFF MANUAL
[2017-03-07] MEDS: FLUTICASONE 100 MCG/VILANTEROL 25 MCG INHALER INH SCH (09:00)
[2017-03-07] MEDS: DOCUSATE SODIUM 50 MG/SENNA 8.6 MG TAB PO SCH ×2 (09:00→21:50)
--- NOTE | 2017-03-07 09:33 | RADRPT ---
EXAM DATE/TIME: 03/07/2017 08:32 [facility] COMPARISON: No previous studies available for comparison. INDICATIONS : Respiratory distress. MEDICAL HISTORY : Chronic obstructive pulmonary disease. Hypertension. Sleep apnea. Diabetes. Skin cancer. Orbital fra cture. SURGICAL HISTORY : Coronary artery stent.Cholecystectomy. Bilateral knee surgery. Right hip surgery. Left shoulder surge ry. ENCOUNTER: Initial ACUITY: 1 day PAIN SCORE: 2/10 LOCATION: Bilateral legs. TECHNIQUE: Venous ultrasound of the left and right leg was performed from the inguinal ligament to the proximal calf. Real-time, color Doppler and spectral tracing, compression and augmentation techniques were us ed. FINDINGS: RIGHT LEG: There is normal compressibility of the deep venous system from the inguinal region to the proximal ca lf. No echogenic clot is seen in the lumen of the common femoral, femoral, popliteal, and posterior tibial veins. There is a normal response of the venous system to proximal and distal augmentation an d respiration. LEFT LEG: There is normal compressibility of the deep venous system from the inguinal region to the proximal ca lf. No echogenic clot is seen in the lumen of the common femoral, femoral, popliteal, and posterior tibial veins. There is a normal response of the venous system to proximal and distal augmentation an d respiration. CONCLUSION: No evidence of deep venous thrombosis within the lower extremities. Salbador Pendleton MD on March 07, 2017 at 9:31 Board Certified Radiologist. This report was verified electronically.
--- NOTE | 2017-03-07 09:43 | RADRPT ---
EXAM DATE/TIME: 03/07/2017 08:21 [facility] COMPARISON: No previous studies available for comparison. INDICATIONS : Abnormal labs. MEDICAL HISTORY : Hypertension. CAD. Peripheral neuropathy. Headache. Sleep apnea. Diabetes. Skin cancer. SURGICAL HISTORY : Cholecystectomy. Coronary stent. Bilateral total knee replacment surgery. Right total hip replace ment surgery. Left shoulder surgery. ORIF. Hiatal hernia repair. ENCOUNTER: Initial ACUITY: 1 day PAIN SCORE: 3/10 LOCATION: Abdomen. MEASUREMENTS: LIVER: 18.4 cm length COMMON DUCT: 10 mm RIGHT KIDNEY: 9.6 x 5.0 x 5.5 cm LEFT KIDNEY: 9.6 x 7.1 x 5.4 cm SPLEEN: 12.5 cm length AORTA: 2.4cm maximal FINDINGS: LIVER: The examination demonstrates increase echogenicity of the liver suggesting fatty infiltration. No truong id masses seen. COMMON DUCT: No intraluminal mass or stone visualized. GALLBLADDER: Contains no stones, demonstrates no wall thickening or pericholecystic fluid. PANCREAS: The visualized portions are within normal limits. RIGHT KIDNEY: No hydronephrosis, stone or mass. LEFT KIDNEY: No hydronephrosis, stone or mass. SPLEEN: No focal lesion. AORTA: Non aneurysmal. IVC: Within normal limits. CONCLUSION: 1. Increased echogenicity of the liver suggesting fatty infiltration. Rob Patten MD on March 07, 2017 at 9:30 Board Certified Radiologist. This report was verified electronically.
[2017-03-07] MEDS: INSULIN ASPART SUPPLEMENTAL SCALE SQ SCH ×4 (10:00→21:54)
[2017-03-07] MEDS: PANTOPRAZOLE SODIUM 40 MG VIAL IV SCH (10:18)
[2017-03-07] MEDS: SODIUM CHLORIDE 0.9% FLUSH 10 ML FLUSH SCH ×2 (10:19→21:50)
--- NOTE | 2017-03-07 11:17 | EKG ---
Date Performed: 03/06/2017 Time Performed: 23:46:17 PTAGE: 77 years EKG: Sinus rhythm WITH FIRST DEGREE AV BLOCK ABNORMAL ECG NO PREVIOUS TRACING DOCTOR: Jl Miller Interpretating Date/Time 03/07/2017 11:14:44
--- NOTE | 2017-03-07 12:45 | ECHRPT ---
Indication: SOB CONCLUSIONS Normal left ventricular size. Wall thickness is normal. The left ventricular systolic function is low normal with an estimated ejection fraction in the rang e of 50- 55%. The left atrial size is [id number] dilated. Moderate thickening of the mitral valve leaflets. Calcification of the posterior mitral valve leaflet. Moderate mitral valve regurgitation. Mitral annular calcification is present. No mitral valve stenosis. Aortic valve sclerosis is present. There is moderate tricuspid regurgitation. There is estimated mild pulmonary hypertension present (48 mmHg). The pulmonary valve is not well visualized. BP: 118 / 60 HR: 104 Rhythm: Other MEASUREMENTS (Male / Female) Normal Values Technical Quality:Fair 2D ECHO LV Diastolic Diameter PLAX 4.8 cm 4.2 - 5.9 / 3.9 - 5.3 cm LV Systolic Diameter PLAX 3.6 cm IVS Diastolic Thickness 1.1 cm 0.6 - 1.0 / 0.6 - 0.9 cm LVPW Diastolic Thickness 0.7 cm 0.6 - 1.0 / 0.6 - 0.9 cm LV Relative Wall Thickness 0.4 RV Internal Dim ED PLAX 2.0 cm LA Systolic Diameter LX 3.2 cm 3.0 - 4.0 / 2.7 - 3.8 cm DOPPLER AV Peak Velocity 198.0 cm/s AV Peak Gradient 15.7 mmHg LVOT Peak Velocity 101.0 cm/s LVOT Peak Gradient 4.1 mmHg MV Peak Velocity 145.0 cm/s MV Peak Gradient 8.4 mmHg MV Mean Velocity 71.6 cm/s MV Mean Gradient 3.0 mmHg MV Area PHT 2.7 cm Mitral E Point Velocity 95.4 cm/s Mitral A Point Velocity 83.9 cm/s Mitral E to A Ratio 1.1 LV E' Lateral Velocity 5.8 cm/s Mitral E to LV E' Lateral Ratio 16.6 LV E' Septal Velocity 6.1 cm/s Mitral E to LV E' Septal Ratio 15.5 TR Peak Velocity 297.0 cm/s TR Peak Gradient 35.3 mmHg FINDINGS LEFT VENTRICLE Normal left ventricular size. Wall thickness is normal. The left ventricular systolic function is low normal with an estimated ejection fraction in the rang e of 50- 55%. RIGHT VENTRICLE Normal right ventricular size and systolic function. LEFT ATRIUM The left atrial size is [id number] dilated. RIGHT ATRIUM The right atrial size is normal. ATRIAL SEPTUM Normal atrial septal thickness without atrial level shunting by limited color doppler interrogation. AORTA The aortic root and proximal ascending aorta are normal in size on limited imaging. MITRAL VALVE Moderate thickening of the mitral valve leaflets. Calcification of the posterior mitral valve leaflet. Moderate mitral valve regurgitation. Mitral annular calcification is present. No mitral valve stenosis. AORTIC VALVE Aortic valve sclerosis is present. TRICUSPID VALVE Structurally normal tricuspid valve. There is moderate tricuspid regurgitation. There is estimated mild pulmonary hypertension present (48 mmHg). PULMONARY VALVE The pulmonary valve is not well visualized. VESSELS The inferior vena cava is normal in size. PERICARDIUM No pericardial effusion. Pasquale Alford MD, FACC (Electronically Signed) Final Date:07 March 2017 12:44
--- NOTE | 2017-03-07 13:00 | HHI.CCPN ---
Subjective Remarks/Hospital Course 77 yo WF with PMH of COPD on 4 L home O2, HTN, DM, HLD, peripheral neuropathy, CAD with prior stents who presents to [facility] [place] with shortness of breath. Her daughter states she was not feeling well since 03/03, though may be related to allergies. Today she has been travelling in a car for about 8 hours as she and her family drove from [facility]. She started having a cough today, productive of brown sputum. Did not check her temperature. Denied chest pain. She got to the hotel and became dyspneic and could not get up from a bench where she stopped to rest. Her daughter states she was lethargic and confused. Sats were 92% in the field. She was placed on Bipap on arrival and administered Lasix 40 mg IV and Solu-Medrol 125 mg IV and DuoNeb. After on Bipap ~ 45 min ABG demonstrated hypercapnea with pH 7.30/PaCO2 45/PA O2 to 44. She remains on BiPAP 10 over 5 with FiO2 35%. Her mental status has improved significantly per discussion with RN in patient's daughter. She had a head CT that was negative. VQ scan showed low probability for PE. There is a ventilatory defect in the right base. CXR showed no significant infiltrate. CT chest noncontrast is pending. She denies chest pain or hemoptysis. She does not carry the diagnosis of CHF. She has chronic bipedal edema. Her daughter states her edema is actually currently better than usual. Subjective: 03/07: Afebrile. Patient's alert and oriented. Currently on 4 LPM/NC O2 sat ranging 97% Objective Vital Signs Date Time Temp Pulse Resp B/P Pulse Ox O2 Delivery O2 Flow Rate FiO2 03/07/17 10:00 79 03/07/17 07:39 98 30 03/07/17 07:00 98.3 10 114/59 03/07/17 02:15 3.00 03/07/17 01:53 BiPAP Result Diagram: 03/07/17 0416 03/07/17 0416 Other Results Microbiology Date/Time Procedure Status Source Growth 03/07/17 10:10 Legionella Antigen - Final Complete Urine Catheterized Urine PRESUMPTIVE NEGATIVE FOR LEGIONELLA P... 03/07/17 10:10 Streptococcus pneumoniae Antigen (M - Final Complete Urine Catheterized Urine PRESUMPTIVE NEGATIVE FOR STREPTOCOCCU... Laboratory Tests Test 03/06/17 18:26 Blood Gas Puncture Site LT RADIAL Blood Gas Patient Temperature 98.6 Blood Gas HCO3 22 mmol/L (22-26) Blood Gas Base Excess -3.7 mmol/L (-2-2) Blood Gas Oxygen Saturation 98 % (90-100) Arterial Blood pH 7.30 (7.380-7.420) Arterial Blood Partial 45 mmHg (38-42) Pressure CO2 Arterial Blood Partial 244 mmHG Pressure O2 (61-120) Arterial Blood Oxygen Content 15.4 Vol % (12.0-20.0) Arterial Blood 1.0 % (0-4) Carboxyhemoglobin Arterial Blood Methemoglobin 0.6 % (0-2) Blood Gas Hemoglobin 10.8 G/DL (12.0-16.0) Oxygen Delivery Device BIPAP Blood Gas Ventilator Setting IPAP 10/EPAP 5 Blood Gas Inspired Oxygen 60 % Imaging Last 24 hours Impressions Lower Extremity Ultrasound 03/07/17 0000 Signed Impressions: Service Date/Time: Tuesday, March 07, 2017 08:32 - CONCLUSION: No evidence of deep venous thrombosis within the lower extremities. Salbador Pendleton MD Chest X-Ray 03/07/17 0000 Signed Impressions: Service Date/Time: Tuesday, March 07, 2017 04:28 - CONCLUSION: No appreciable change in bilateral atelectasis and/or infiltrate mainly in the left lung base. Milan Huston MD Abdomen Ultrasound 03/07/17 0000 Signed Impressions: Service Date/Time: Tuesday, March 07, 2017 08:21 - CONCLUSION: 1. Increased echogenicity of the liver suggesting fatty infiltration. Rob Patten MD Head CT 03/06/[id number] Signed Impressions: Service Date/Time: Monday, March 06, 2017 20:01 - CONCLUSION: No acute findings in the brain. Vahid Wiseman MD Lung Scan- Nuclear Medicine [id number]/06/[id number] Signed Impressions: Service Date/Time: Monday, March 06, 2017 20:34 - CONCLUSION: 1. Matched ventilation/perfusion defects in the right lung base with the ventilatory defects larger than the perfusion defects. 2. No mismatched perfusion defects. 3. The overall impression is of low probability pulmonary embolism. Vahid Wiseman MD Chest X-Ray 03/06/17 [id number] Signed Impressions: Service Date/Time: Monday, March 06, 2017 18:21 - CONCLUSION: No acute cardiopulmonary disease demonstrated. All French MD Objective Remarks BP 107/58 pulse 66 respiratory rate 14, O2 sat 97% on 4 L nasal GENERAL: Obese well-developed female, alert and oriented SKIN: Warm and dry, well perfused. HEAD: Atraumatic. Normocephalic. EYES: Pupils equal and round 2 mm reactive bilaterally. No scleral icterus. No injection or drainage. ENT: Oral Mucosa moist NECK: Trachea midline. No JVD appreciated CARDIOVASCULAR: Regular rate and rhythm, sinus rhythm on the monitor without murmurs rubs or gallops appreciated. RESPIRATORY: Marked prolonged expiratory phase with coarse expiratory breath sounds. No Rales or rhonchi. GASTROINTESTINAL: Abdomen obese, soft, nontender nondistended. Suprapubic scar well-healed. : Castillo in place with yellow urine output. MUSCULOSKELETAL: Extremities without clubbing, cyanosis. 2+ pitting edema bilateral lower extremities. No calf tenderness. NEUROLOGICAL: GCS 15. Awake and alert, oriented 3. Moves all extremities spontaneously and to commands. Strength is 5 out of 5 without focal deficit. Sensation intact. Castillo insert reason: Measure Accurate Output Date of Insertion: Mar 06, 2017 A/P Assessment and Plan NEURO: Acute encephalopathy-resolved Peripheral neuropathy CT brain negative Held gabapentin 300 tid for now due to decreased mental status. When resume, will need to adjust dose for renal insufficiency. Hold oxycodone 10 q4 for now. Use 5 q6 hours prn, hold for excess sedation. RESP: Acute hypercapnic respiratory failure COPD O2 home dependency Second hand smoke exposure Community acquired pneumonia O2 via nasal cannula 4 L/m and wean FIO2 as tolerated. Solu-Medrol 40 mg IV every 8. DuoNeb every 6 hours. Albuterol q 2 hours prn wheezing. Abx as per below VQ low prob for PE 03/06 CT chest - bilateral infiltrates c/w pneumonia CV: Coronary artery disease with prior stents Hypertension Hyperlipidemia 03/07 2-D echo-EF 5055 percent, moderate mitral regurgitation, moderate tricuspid regurgitation, mild pulmonary hypertension 48mmHg BNP 80 Serial cardiac markers and EKG. Troponin 0.02. Aspirin daily Continue statin Hold coreg for now until determine hemodynamic stability Received Lasix 40 mg IV in the emergency department. Does not appear to require further diuresis. GI: Obesity Mild AST elevation Hypoalbuminemia Hiatal hernia Fatty liver Clear liquid diet 03/06 abdominal u/s -large hiatal hernia FEN/RENAL: Hyponatremia Renal insufficiency ?chronicity Patient may have CKD but she is unaware of any history of that. Checked Urine eos, CPK, Fena 1.3 c/w intrinsic renal disease/ATN. Obtain renal u/s. Castillo in place. Monitor intake and output. Monitor electrolytes and replace as indicated. On 0.9 NaCl at 100 mm per hour Nephrology consulted-Dr. Atkins ID: Acute right lower lobe pneumonia Received vancomycin and Zosyn in the emergency department. Will continue on Zosyn 2.25 IV every 6 hours adjusted for renal function, azithromycin for atypical coverage. Follow-up blood cultures. Obtain sputum culture. 03/06 Urine Legionella and pneumococcal antigen-resume negative UA negative for evidence of infection. HEME: Anemia of unknown chronicity Followed bilateral lower extremity ultrasound ENDO: Diabetes mellitus Hold metformin and glimepiride. Medium dose insulin sliding scale q4 hours. Monitor closely while on steroids, may need additional insulin coverage and/or quick steroid taper. PROPH: Heparin 5000 subcutaneous q12 for DVT prophylaxis. Protonix 40 mg daily for stress ulcer prophylaxis. ACCESS: Peripheral IV providing adequate access at this time. Daughter updated at bedside. Discussed with [employer] and patient at bedside Full code CCT 35 minutes exclusive of separately billable procedures. Physician Shyann Conn MD Mar 07, 2017 13:00
--- NOTE | 2017-03-07 15:58 | MB ---
cc: DONNA HATHAWAY MD DATE OF CONSULTATION 03/06/2017 REASON FOR CONSULTATION Elevated BUN and creatinine for evaluation. HISTORY OF PRESENT ILLNESS This is a 77-year-old female with past medical history of hypertension, diabetes mellitus, ischemic heart disease, chronic obstructive pulmonary disease, possible chronic kidney disease, came to the hospital with complaint of shortness of breath. The patient lives [place] and she is visiting here and has been traveling in the car for 8 hours from [place] and started having cough productive of brownish sputum and worsening shortness of breath. There was no chest pain. The patient denies any known history of renal disease. She was seen by her primary physician in [place] about two months ago and she was not told that she has any renal disease but when she came in here it was found that her creatinine was 4.0. The patient denies any nausea or vomiting but she has decreased appetite. There is no history of diarrhea. Denies taking any nonsteroidal anti-inflammatory drugs. She has some dysuria. There is no history of hematuria. No history of renal stone. She has chronic edema in the legs according to the chart and this has been slightly better. PAST MEDICAL HISTORY 1. Hypertension. 2. Diabetes mellitus. 3. Hyperlipidemia. 4. Ischemic heart disease. 5. Chronic obstructive pulmonary disease. 6. Possible chronic kidney disease. PAST SURGICAL HISTORY 1. Cholecystectomy. 2. Bilateral knee arthroplasty. 3. Left rotator cuff surgery. 4. Left hip arthroplasty. 5. of the orbit. 6. Multiple hiatal hernia surgery. REVIEW OF SYSTEMS The patient denies any known history of fever. She has been having this cough and sputum which is brownish in color, associated with worsening shortness of breath. No chest pain. No palpitation. No nausea, vomiting. Her appetite is not very good. She has some history of dysuria but there is no history of hematuria. Not taking any nonsteroidal anti-inflammatory drugs. SOCIAL HISTORY There is no history of smoking except second hand of her . No history of alcoholism. ALLERGIES She has no known drug allergies. FAMILY HISTORY Noncontributory. MEDICATIONS Currently she is on following medications: 1. IV fluid normal saline 100 an hour. 2. Sarahi-Colace one tablet b.i.d. 3. Fluticasone inhalation. 4. Protonix 40 mg IV daily. 5. Aspirin 81 mg once a day. 6. Lipitor 40 mg q.h.s. 7. DuoNeb nebulizer. 8. She received one dose of Vancomycin and Zosyn. 9. She is currently on methyl prednisolone 40 milligrams q.12h. 10. Heparin 5000 units subcu q. 12-hour. 11. Azithromycin 500 mg q. 24-hour. 12. Zosyn q.6-hour 2.25 grams. 13. Insulin aspart sliding-scale. 14. Albuterol as needed. 15. Percocet as needed. PHYSICAL EXAMINATION GENERAL: On examination the patient is awake, alert. She is in mild respiratory distress. VITAL SIGNS: Her last blood pressure 122/57. There is no significant hypotensive episode. During this admission, temperature 98.4 with a T max of 100.7. Oxygen saturation is 98-99%. HEENT: Pupils equally reactive to light. Nonicteric sclerae. Conjunctiva pale. NECK: Supple. JVD is not is not elevated. LUNGS: The patient has bilateral decreased air entry with scattered wheezing. HEART: S1-S2. Regular rhythm. ABDOMEN: Distended, soft, lax. There is no tenderness. EXTREMITIES: She has mild edema in the legs. LABORATORY DATA Investigations WBC count 8.5, hemoglobin 9.3, platelet count 167, neutrophils 93.3%. Sodium 135, potassium 5.3, chloride 100, bicarb 24.6, BUN 64, creatinine 4.1, glucose 280. Calcium 8.3, phosphorus 5.2. Creatinine kinase 313. Troponin I 0.02. Urinalysis showing protein of 30. IMAGING STUDIES The patient had ultrasound of the abdomen done which shows both kidneys are normal in size 9.6 cm and there is no hydronephrosis. The patient also has lower extremity ultrasound done which was negative for deep vein thrombosis. CT scan of the chest was done without IV contrast and it shows bilateral infiltrates suspicious for pneumonia. ASSESSMENT/PLAN 1. Acute kidney injury with possibility of chronic kidney disease. 2. Pneumonia. 3. Hypertension. 4. Diabetes mellitus. 5. Morbid obesity. 6. Anemia. Patient has minimal proteinuria, most likely she has underlying hypertensive or diabetic renal disease and it has gotten worse either because of infection and ATN or possibility of acute interstitial nephritis. Other possibilities to rule out is any pulmonary renal syndrome including vasculitis. For that reason I will send serology including QUEENIE, ANCA and complements. Agree with continuing IV fluid and avoid any nephrotoxins. Thank you for the consultation. I will follow the patient while she is in the hospital. MD MADELYN Mancini/JAMESON /3:01 PM /3:35 PM
--- NOTE | 2017-03-07 18:20 | EKG ---
Date Performed: 03/07/2017 Time Performed: 17:15:57 PTAGE: 77 years EKG: Mild baseline artifact Probable Sinus rhythm probably normal electrocardiogram NO SIGNIFICANT CHANGE FROM PRIOR ELECTROCARDIOGRAM. PREVIOUS TRACING : 03/07/2017 09.58 DOCTOR: Zoran Pettit Interpretating Date/Time 03/07/2017 18:19:09
[2017-03-07] MEDS: ONDANSETRON HCL 4 MG/2 ML VIAL IV PRN (18:35)
[2017-03-07] MEDS: oxyCODONE/ACETAMINOPHEN 5 MG/325 MG TAB PO PRN (21:51)
[2017-03-07] MEDS: ATORVASTATIN 40 MG TAB PO SCH (21:51)
[2017-03-08] VITALS (21 sets, daily range): BP systolic 106–149; BP diastolic 55–69; PULSE 55–98; RESP 14–20; TEMP 97.2–98; O2SAT 94–100
[2017-03-08] MEDS: INSULIN ASPART SUPPLEMENTAL SCALE SQ SCH ×6 (01:30→20:28)
[2017-03-08] MEDS: CHLORHEXIDINE GLUCONATE 2 % 1 PACK (2 CLOTHS) TOP SCH (02:00)
[2017-03-08] MEDS: PIPERACIL-TAZO 2.25 GM PREMIX 50 ML IV SCH ×4 (02:04→20:27)
[2017-03-08] MEDS: SODIUM CHLOR 0.9% 1000 ML INJ 1,000 ML IV SCH ×2 (02:04→14:33)
[2017-03-08] MEDS: RESP: ALBUTEROL 2.5 MG/IPRATROPIUM 0.5 MG NEB (SCH) NEB ×4 (03:37→19:48)
--- NOTE | 2017-03-08 04:54 | EKG ---
Date Performed: 03/07/2017 Time Performed: 22:12:50 PTAGE: 77 years EKG: Sinus rhythm LOW QRS VOLTAGE IN PRECORDIAL LEADS BORDERLINE ECG PREVIOUS TRACING : 03/07/2017 17.15 No significant change. DOCTOR: Zoran Pettit Interpretating Date/Time 03/08/2017 04:53:13
[2017-03-08] MEDS: methylPREDNISolone SOD SUCC 40 MG/1 ML VIAL IV PUSH SCH ×2 (05:17→17:28)
[2017-03-08 05:58] LABS: AUTOMATED NEUTROPHIL # 6.6 TH/MM3 (1.8-7.7); BASOPHIL % 0.1 % (0.0-2.0); HEMATOCRIT 25.1 % (35.0-46.0); HEMO FLAGS DIFF FINAL; LYMPH % 6.8 % (9.0-44.0); LYMPHOCYTE # 0.5 TH/MM3 (1.0-4.8); MEAN CELL VOLUME 87.2 FL (80.0-100.0); MEAN CORPUSCULAR HEMOGLOBIN 28.9 PG (27.0-34.0); MEAN CORPUSCULAR HGB CONC 33.2 % (32.0-36.0); MONO % 8.9 % (0.0-8.0); NEUT % 84.2 % (16.0-70.0); PLATELET COUNT 167 TH/MM3 (150-450); RED BLOOD COUNT 2.88 MIL/MM3 (4.00-5.30); WHITE BLOOD COUNT 7.9 TH/MM3 (4.0-11.0)
[2017-03-08 06:22] LABS: BICARBONATE 23.7 MEQ/L (21.0-32.0); MAGNESIUM 2.8 MG/DL (1.5-2.5); POTASSIUM 4.4 MEQ/L (3.5-5.1)
[2017-03-08] MEDS: DOCUSATE SODIUM 50 MG/SENNA 8.6 MG TAB PO SCH ×2 (08:59→20:27)
[2017-03-08] MEDS: PANTOPRAZOLE SODIUM 40 MG VIAL IV SCH (08:59)
[2017-03-08] MEDS: ASPIRIN 81 MG CHEW TAB CHEW SCH (08:59)
[2017-03-08] MEDS: FLUTICASONE 100 MCG/VILANTEROL 25 MCG INHALER INH SCH (09:00)
[2017-03-08] MEDS: SODIUM CHLORIDE 0.9% FLUSH 10 ML FLUSH SCH ×2 (09:00→20:24)
[2017-03-08] MEDS: HEPARIN SODIUM - SQ 10,000 UNITS/ML VIAL SQ SCH (11:00)
[2017-03-08] MEDS: MORPHINE SULFATE 4 MG/ML INJ IV PRN ×2 (11:39→15:49)
--- NOTE | 2017-03-08 14:12 | EKG ---
Date Performed: 03/07/2017 Time Performed: 09:58:47 PTAGE: 77 years EKG: Normal Sinus rhythm First degree AV block Compared to prior tracing no significant change PREVIOUS TRACING : 03/06/2017 23.46 DOCTOR: Jl Miller Interpretating Date/Time 03/08/2017 14:10:22
[2017-03-08] MEDS: ONDANSETRON HCL 4 MG/2 ML VIAL IV PRN ×2 (16:01→21:32)
--- NOTE | 2017-03-08 16:31 | HHI.NPPN ---
Subjective History of Present Illness 77-year-old female with past medical history of hypertension, diabetes mellitus, ischemic heart disease, chronic obstructive pulmonary disease, possible chronic kidney disease, came to the hospital with complaint of shortness of breath. The patient lives up [place] and she is visiting here and has been traveling in the car for 8 hours from [place] and started having cough productive of brownish sputum and worsening shortness of breath. Additional Remarks Patient is alert, now breathing is better, no dizziness, no SOB. Review of Systems General Constitutional: Fatigue Respiratory Lungs: SOB Cardiovascular Cardiac: Edema, CONNELLY Objective Data Data 03/07/17 03/08/17 19:00 07:00 Intake Total 892 ml 1357 ml Output Total 1800 ml 1700 ml Balance -908 ml -343 ml Intake Oral 120 ml 650 ml IV Total 772 ml 707 ml Output Urine Total 1800 ml 1700 ml # Bowel Movements 0 Vital Signs Date Time Temp Pulse Resp B/P Pulse Ox O2 Delivery O2 Flow Rate FiO2 03/08/17 12:00 71 03/08/17 11:00 98.0 67 18 128/62 100 03/08/17 10:00 56 03/08/17 08:01 56 03/08/17 07:32 99 Nasal Cannula 2.00 03/08/17 07:00 97.2 58 18 129/62 100 03/08/17 06:00 56 03/08/17 04:45 98 30 03/08/17 04:00 55 03/08/17 03:00 97.4 98 20 106/55 98 03/08/17 02:00 58 03/08/17 00:23 97 30 03/08/17 00:00 63 03/07/17 23:00 97.2 66 18 113/55 100 03/07/17 22:00 65 03/07/17 21:15 97 Nasal Cannula 2.00 03/07/17 20:00 66 03/07/17 19:00 97.2 66 18 113/55 100 03/07/17 18:00 79 -: 03/08/17 0511 03/08/17 0511 Physical Exam General Appearance: No Acute Distress, Comfortable Eyes Eye Exam: Pupils Equal Throat Throat Exam: Oral Mucosa [place]st & Moist Neck Neck Exam: Neck Supple, Trachea Midline Pulmonary Resp Exam: Breath Sounds Equal, No Distress, Rhonchi, Decreased Bases Cardiology CV Exam: Regular, Normal Sinus Rhythm Gastrointestinal/Abdomen GI Exam: Soft, Non-Tender, Bowel Sounds Present Extremeties Extremities Exam: Moderate Edema, Pitting Edema Neurologic Neuro Exam: Alert, Awake, Oriented Psychiatric Psych Exam: Appropriate Responses Assessment/Plan Assessment Summary: SANTO/Acute Renal Failure Problem List: (1) Respiratory distress (2) Acute renal failure Plan Patient has good urine out put. Creatinine decreased to 2.1 Most likely has SANTO due to ATN or pre renal. Continue IVF and antibiotics. Avoid Nephrotoxins. Follow the urine out put and BMP. Problem Qualifiers (1) Acute renal failure: Qualified Code: N17.9 - Acute renal failure, unspecified acute renal failure type George Atkins MD Mar 08, 2017 16:31
--- NOTE | 2017-03-08 18:35 | HHI.CCPN ---
Subjective Remarks/Hospital Course 77 yo WF with PMH of COPD on 4 L home O2, HTN, DM, HLD, peripheral neuropathy, CAD with prior stents who presents to [facility] with shortness of breath. Her daughter states she was not feeling well since 03/03, though may be related to allergies. Today she has been travelling in a car for about 8 hours as she and her family drove from [facility]. She started having a cough today, productive of brown sputum. Did not check her temperature. Denied chest pain. She got to the hotel and became dyspneic and could not get up from a bench where she stopped to rest. Her daughter states she was lethargic and confused. Sats were 92% in the field. She was placed on Bipap on arrival and administered Lasix 40 mg IV and Solu-Medrol 125 mg IV and DuoNeb. After on Bipap ~ 45 min ABG demonstrated hypercapnea with pH 7.30/PaCO2 45/PA O2 to 44. She remains on BiPAP 10 over 5 with FiO2 35%. Her mental status has improved significantly per discussion with RN in patient's daughter. She had a head CT that was negative. VQ scan showed low probability for PE. There is a ventilatory defect in the right base. CXR showed no significant infiltrate. CT chest noncontrast is pending. She denies chest pain or hemoptysis. She does not carry the diagnosis of CHF. She has chronic bipedal edema. Her daughter states her edema is actually currently better than usual. Subjective: 03/07: Afebrile. Patient's alert and oriented. Currently on 4 LPM/NC O2 sat ranging 97%. 03/08: Creatinine improving. The patient is alert and oriented very interactive. Patient's respiratory status improved. Sputum culture showing gram-negative rods. The patient remains empirically on azithromycin and Zosyn. Patient tolerating clear liquid diet patient advanced to 1800 ADA diet today. Objective Vital Signs Date Time Temp Pulse Resp B/P Pulse Ox O2 Delivery O2 Flow Rate FiO2 03/08/17 18:00 90 03/08/17 15:00 98.0 18 137/68 100 03/08/17 07:32 Nasal Cannula 2.00 03/08/17 04:45 30 Intake and Output 03/07/17 03/07/17 03/08/17 08:00 16:00 00:00 Intake Total 702 ml 892 ml 660 ml Output Total 800 ml 1800 ml 900 ml Balance -98 ml -908 ml -240 ml Result Diagram: 03/08/17 0511 03/08/17 0511 Other Results Microbiology Date/Time Procedure Status Source Growth 03/07/17 10:10 Legionella Antigen - Final Complete Urine Catheterized Urine PRESUMPTIVE NEGATIVE FOR LEGIONELLA P... 03/07/17 10:10 Streptococcus pneumoniae Antigen (M - Final Complete Urine Catheterized Urine PRESUMPTIVE NEGATIVE FOR STREPTOCOCCU... Imaging Last 24 hours Impressions Lower Extremity Ultrasound 03/07/17 0000 Signed Impressions: Service Date/Time: Tuesday, March 07, 2017 08:32 - CONCLUSION: No evidence of deep venous thrombosis within the lower extremities. Salbador Pendleton MD Chest X-Ray 03/07/17 0000 Signed Impressions: Service Date/Time: Tuesday, March 07, 2017 04:28 - CONCLUSION: No appreciable change in bilateral atelectasis and/or infiltrate mainly in the left lung base. Milan Huston MD Abdomen Ultrasound 03/07/17 0000 Signed Impressions: Service Date/Time: Tuesday, March 07, 2017 08:21 - CONCLUSION: 1. Increased echogenicity of the liver suggesting fatty infiltration. Rob Patten MD Head CT 03/06/171945 Signed Impressions: Service Date/Time: Monday, March 06, 2017 20:01 - CONCLUSION: No acute findings in the brain. Vahid Wiseman MD Lung Scan- Nuclear Medicine 03/06/17 191 Signed Impressions: Service Date/Time: Monday, March 06, 2017 20:34 - CONCLUSION: 1. Matched ventilation/perfusion defects in the right lung base with the ventilatory defects larger than the perfusion defects. 2. No mismatched perfusion defects. 3. The overall impression is of low probability pulmonary embolism. Vahid Wiseman MD Chest X-Ray 03/06/[id number] Signed Impressions: Service Date/Time: Monday, March 06, 2017 18:21 - CONCLUSION: No acute cardiopulmonary disease demonstrated. All French MD Objective Remarks BP 107/58 pulse 66 respiratory rate 14, O2 sat 97% on 4 L nasal GENERAL: Obese well-developed female, alert and oriented SKIN: Warm and dry, well perfused. HEAD: Atraumatic. Normocephalic. EYES: Pupils equal and round 2 mm reactive bilaterally. No scleral icterus. No injection or drainage. ENT: Oral Mucosa moist NECK: Trachea midline. No JVD appreciated CARDIOVASCULAR: Regular rate and rhythm, sinus rhythm on the monitor without murmurs rubs or gallops appreciated. RESPIRATORY: Marked prolonged expiratory phase with coarse expiratory breath sounds. No Rales or rhonchi. GASTROINTESTINAL: Abdomen obese, soft, nontender nondistended. Suprapubic scar well-healed. : Castillo in place with yellow urine output. MUSCULOSKELETAL: Extremities without clubbing, cyanosis. 2+ pitting edema bilateral lower extremities. No calf tenderness. NEUROLOGICAL: GCS 15. Awake and alert, oriented 3. Moves all extremities spontaneously and to commands. Strength is 5 out of 5 without focal deficit. Sensation intact. Urinary Catheter: Yes Catsillo insert reason: Measure Accurate Output Date of Insertion: Mar 06, 2017 Vascular Central Line Catheter: No A/P Assessment and Plan NEURO: Acute encephalopathy-resolved Peripheral neuropathy CT brain negative Held gabapentin 300 tid for now .When resume, will need to adjust dose for renal insufficiency. Hold oxycodone 10 q4 for now. Use 5 q6 hours prn, hold for excess sedation. RESP: Acute hypercapnic respiratory failure COPD O2 home dependency Second hand smoke exposure Community acquired pneumonia O2 via nasal cannula 4 L/m and wean FIO2 as tolerated. Solu-Medrol 40 mg IV every 8. DuoNeb every 6 hours. Albuterol q 2 hours prn wheezing. Abx as per below VQ low prob for PE 03/06 CT chest - bilateral infiltrates c/w pneumonia CV: Coronary artery disease with prior stents Hypertension Hyperlipidemia 03/07 2-D echo-EF 5055 percent, moderate mitral regurgitation, moderate tricuspid regurgitation, mild pulmonary hypertension 48mmHg BNP 80 Serial cardiac markers and EKG. Troponin 0.02. Aspirin daily Continue statin Hold coreg for now until determine hemodynamic stability Received Lasix 40 mg IV in the emergency department. Does not appear to require further diuresis. GI: Obesity Mild AST elevation Hypoalbuminemia Hiatal hernia Fatty liver Advanced to 1800-calorie ADA diet 03/06 abdominal u/s -large hiatal hernia FEN/RENAL: Hyponatremia Renal insufficiency ?chronicity Patient may have CKD but she is unaware of any history of that. Checked Urine eos, CPK, Fena 1.3 c/w intrinsic renal disease/ATN. Obtain renal u/s. Castillo in place. Monitor intake and output. Monitor electrolytes and replace as indicated. On 0.9 NaCl at 100 mm per hour Nephrology consulted-Dr. Atkins Creatinine improved 4.15-> 2.29 today ID: Acute right lower lobe pneumonia Received vancomycin and Zosyn in the emergency department. Will continue on Zosyn 2.25 IV every 6 hours adjusted for renal function, azithromycin for atypical coverage. Follow-up blood cultures. Obtain sputum culture. 03/06 Urine Legionella and pneumococcal antigen-resume negative UA negative for evidence of infection. 03/08 sputum [id number] rods HEME: Anemia of unknown chronicity Followed bilateral lower extremity ultrasound ENDO: Diabetes mellitus Hold metformin and glimepiride. Medium dose insulin sliding scale q4 hours. Monitor closely while on steroids, may need additional insulin coverage and/or quick steroid taper. MSK: H/O Left ROBIN H/O B/L TKA PT evaluation and treat patient to be out of bed up and ambulating. PROPH: Heparin 5000 subcutaneous q12 for DVT prophylaxis. Protonix 40 mg daily for stress ulcer prophylaxis. ACCESS: Peripheral IV providing adequate access at this time. Daughter updated at bedside. Discussed with HOSPICE NURSE and patient at bedside Full code Level 2. Discussed with HOSPICE NURSE at bedside. Plan [facility].. Physician Shyann Conn MD Mar 08, 2017 18:35
[2017-03-08] MEDS: ATORVASTATIN 40 MG TAB PO SCH (20:27)
[2017-03-08] MEDS: oxyCODONE/ACETAMINOPHEN 5 MG/325 MG TAB PO PRN (21:30)
[2017-03-09] VITALS (10 sets, daily range): BP systolic 127–199; BP diastolic 67–88; PULSE 56–85; RESP 10–20; TEMP 97.2–98.1; O2SAT 97–99
[2017-03-09] MEDS: SODIUM CHLOR 0.9% 1000 ML INJ 1,000 ML IV SCH ×3 (00:33→21:36)
[2017-03-09] MEDS: HEPARIN SODIUM - SQ 10,000 UNITS/ML VIAL SQ SCH ×3 (00:39→21:40)
[2017-03-09] MEDS: AZITHROMYCIN INJ 500 MG in SODIUM CHLOR 0.9% 250 ML INJ 250 ML IV SCH ×2 (00:39→23:39)
[2017-03-09] MEDS: MORPHINE SULFATE 4 MG/ML INJ IV PRN ×3 (00:46→21:26)
[2017-03-09] MEDS: INSULIN ASPART SUPPLEMENTAL SCALE SQ SCH ×6 (02:00→21:58)
[2017-03-09] MEDS: PIPERACIL-TAZO 2.25 GM PREMIX 50 ML IV SCH ×4 (03:07→22:16)
[2017-03-09] MEDS: RESP: ALBUTEROL 2.5 MG/IPRATROPIUM 0.5 MG NEB (SCH) NEB ×4 (03:12→22:00)
[2017-03-09] MEDS: CHLORHEXIDINE GLUCONATE 2 % 1 PACK (2 CLOTHS) TOP SCH (03:37)
[2017-03-09] MEDS: methylPREDNISolone SOD SUCC 40 MG/1 ML VIAL IV PUSH SCH ×2 (05:35→18:00)
[2017-03-09 06:50] LABS: HEMATOCRIT 26.1 % (35.0-46.0); MEAN CELL VOLUME 86.9 FL (80.0-100.0); MEAN CORPUSCULAR HEMOGLOBIN 29.3 PG (27.0-34.0); MEAN CORPUSCULAR HGB CONC 33.7 % (32.0-36.0); PLATELET COUNT 207 TH/MM3 (150-450); RED BLOOD COUNT 3.01 MIL/MM3 (4.00-5.30); RED CELL DISTRIBUTION WIDTH 16.8 % (11.6-17.2); REVIEW FLAG FINAL; WHITE BLOOD COUNT 8.8 TH/MM3 (4.0-11.0)
[2017-03-09 07:20] LABS: BICARBONATE 23.5 MEQ/L (21.0-32.0); MAGNESIUM 2.7 MG/DL (1.5-2.5); POTASSIUM 4.6 MEQ/L (3.5-5.1)
[2017-03-09] MEDS: DOCUSATE SODIUM 50 MG/SENNA 8.6 MG TAB PO SCH ×2 (08:00→21:37)
[2017-03-09] MEDS: ASPIRIN 81 MG CHEW TAB CHEW SCH (08:01)
[2017-03-09] MEDS: PANTOPRAZOLE SODIUM 40 MG VIAL IV SCH (08:01)
[2017-03-09] MEDS: oxyCODONE/ACETAMINOPHEN 5 MG/325 MG TAB PO PRN (08:01)
[2017-03-09] MEDS: SODIUM CHLORIDE 0.9% FLUSH 10 ML FLUSH SCH ×2 (09:00→21:00)
--- NOTE | 2017-03-09 10:03 | HHI.PR ---
Subjective Remarks resting comfortably with no distress. on two liters of oxygen via N/C. has occasional cough. no fever. d/w the RN. Objective Vitals Vital Signs Date Time Temp Pulse Resp B/P Pulse Ox O2 Delivery O2 Flow Rate FiO2 03/09/17 08:10 97 Nasal Cannula 2.00 03/09/17 08:00 98.0 60 17 127/67 99 03/09/17 04:00 97.6 60 17 144/67 99 03/09/17 00:00 98.1 63 10 164/74 98 03/08/17 22:03 98 30 03/08/17 20:00 98.0 69 14 149/68 94 03/08/17 19:48 97 Nasal Cannula 2.00 03/08/17 19:00 97.8 92 18 135/69 100 03/08/17 18:00 90 03/08/17 16:00 90 03/08/17 15:00 98.0 92 18 137/68 100 03/08/17 14:00 90 03/08/17 12:00 71 03/08/17 11:00 98.0 67 18 128/62 100 I/O 03/08/17 03/08/17 03/08/17 03/09/17 03/09/17 03/09/17 07:00 15:00 23:00 07:00 15:00 23:00 Intake Total 697 ml 1606 ml 1097 ml 1076 ml Output Total 800 ml 2000 ml 1200 ml 950 ml Balance -103 ml -394 ml -103 ml 126 ml Intake Oral 350 ml 850 ml 480 ml 240 ml IV Total 347 ml 756 ml 617 ml 836 ml Output Urine Total 800 ml 2000 ml 1200 ml 950 ml # Bowel Movements 0 0 2 Result Diagram: 03/09/17 0500 03/09/17 0500 Imaging Last Impressions Lower Extremity Ultrasound 03/07/17 0000 Signed Impressions: Service Date/Time: Tuesday, March 07, 2017 08:32 - CONCLUSION: No evidence of deep venous thrombosis within the lower extremities. Salbador Pendleton MD Chest X-Ray 03/07/17 0000 Signed Impressions: Service Date/Time: Tuesday, March 07, 2017 04:28 - CONCLUSION: No appreciable change in bilateral atelectasis and/or infiltrate mainly in the left lung base. Milan Huston MD Abdomen Ultrasound 03/07/17 0000 Signed Impressions: Service Date/Time: Tuesday, March 07, 2017 08:21 - CONCLUSION: 1. Increased echogenicity of the liver suggesting fatty infiltration. Rob Patten MD Head CT 03/06/171945 Signed Impressions: Service Date/Time: Monday, March 06, 2017 20:01 - CONCLUSION: No acute findings in the brain. Vahid Wiseman MD Lung Scan- Nuclear Medicine 03/06/[id number] Signed Impressions: Service Date/Time: Monday, March 06, 2017 20:34 - CONCLUSION: 1. Matched ventilation/perfusion defects in the right lung base with the ventilatory defects larger than the perfusion defects. 2. No mismatched perfusion defects. 3. The overall impression is of low probability pulmonary embolism. Vahid Wiseman MD Chest CT 03/06/17 0000 Signed Impressions: Service Date/Time: Monday, March 06, 2017 23:03 - CONCLUSION: Bilateral infiltrates suspicious for pneumonia. Milan Huston MD Objective Remarks GENERAL: This is a well-nourished, well-developed patient, in no apparent distress. CARDIOVASCULAR: Regular rate and regular rhythm without murmurs, gallops, or rubs. RESPIRATORY: diminished air entry in bases. GASTROINTESTINAL: Abdomen soft, non-tender, nondistended. Normal, active bowel sounds MUSCULOSKELETAL: Extremities without clubbing, cyanosis, or edema. NEURO: Alert & Oriented x4 to person, place, time, situation. Moves all ext x4 Procedures none Medications and IVs Current Medications Furosemide (Lasix Inj) 40 mg ONCE ONCE IV PUSH Last administered on 03/06/17 21:20; Start 03/06/17 at 19:30; Stop 03/06/17 at 19:31; Status DC Methylprednisolone Sodium Succinate (SoluMEDROL INJ) 125 mg ONCE ONCE IV PUSH Last administered on 03/06/17 21:20; Start 03/06/17 at 19:30; Stop 03/06/17 at 19:31; Status DC Albuterol/ Ipratropium 1 ampule 1 ampule Q15M INH Last administered on 19:36; Start 03/06/17 at 19:30; Stop 03/06/17 at 19:46; Status DC Vancomycin HCl 1000 mg/Sodium Chloride 250 ml @ 250 mls/hr ONCE ONCE IV Last administered on 03/06/17 21:28; Start 03/06/17 at 21:15; Stop 03/06/17 at 22:14 ; Status DC Piperacillin Sod/ Tazobactam Sod (Zosyn 2.25 Gm Premix) 50 ml @ 100 mls/hr ONCE ONCE IV Last administered on 03/07/17 00:26; Start 03/06/17 at 22:30; Stop 03/06/17 at 22:59; Status DC Methylprednisolone Sodium Succinate (SoluMEDROL INJ) 40 mg Q8HR IV PUSH Last administered on 03/07/17 04:51; Start 03/07/17 at 06:00; Stop 03/07/17 at 06:00 ; Status DC Albuterol/ Ipratropium (Duoneb Neb) 1 ampule Q6HR NEB NEB Last administered on 03/09/17 08:08; Start 03/06/17 at 22:15 Albuterol Sulfate (Albuterol Neb) 2.5 mg Q2HR NEB PRN NEB WHEEZING; Start 03/06 at 22:15 Atorvastatin Calcium (Lipitor) 40 mg HS PO Last administered on 03/08/17 20:27 ; Start 03/07/17 at 21:00 Fluticasone/ Vilanterol 1 puff 1 puff DAILY INH ; Start 03/07/17 at 09:00 Sodium Chloride (NS 1000 ml Inj) 1,000 ml @ 100 mls/hr Q10H IV Last administered on 03/09/17 00:33; Start 03/06/17 at 22:33 Sodium Chloride (NS Flush) 2 ml UNSCH PRN .XX FLUSH AFTER USING IV ACCESS; Start 03/06/17 at 22:45 Sodium Chloride (NS Flush) 2 ml BID .XX Last administered on 03/08/17 09:00; Start 03/07/17 at 09:00 Acetaminophen (Tylenol) 650 mg Q6H PRN PO PAIN 1-2 AND/OR FEVER >101F; Start at 22:45 Oxycodone/ Acetaminophen (Percocet 5-325 Mg) 1 tab Q4H PRN PO PAIN SCALE 1 TO 5; Start 03/06/17 at 22:45; Stop 03/07/17 at 08:06; Status DC Morphine Sulfate (Morphine Inj) 2 mg Q2H PRN IV PAIN SCALE 6 TO 10 Last administered on 03/09/17 08:00; Start 03/06/17 at 22:45 Pantoprazole Sodium (Protonix Inj) 40 mg DAILY IV Last administered on 08:01; Start 03/07/17 at 09:00 Ondansetron HCl (Zofran Inj) 4 mg Q6H PRN IV NAUSEA OR VOMITING Last administered on 03/08/17 21:32; Start 03/06/17 at 22:45 Heparin Sodium (Porcine) (Heparin Inj) 5,000 units Q12H SQ Last administered on 03/09/17 00:39; Start 03/06/17 at 23:00 Miscellaneous Information 1 Q361D XX ; Start 03/06/17 at 22:45 Chlorhexidine Gluconate (Chlorhexidine 2% Cloth) 3 pack Taper DAILY@04 TOP Last administered on 03/09/17 03:37; Start 03/07/17 at 04:00; Stop 03/03/18 at 03:59 Chlorhexidine Gluconate (Chlorhexidine 2% Cloth) 3 pack UNSCH PRN TOP HYGIENIC CARE; Start 03/06/17 at 22:45 Senna/Docusate Sodium (Sarahi-Colace) 1 tab BID PO Last administered on 08:00; Start 03/07/17 at 09:00 Magnesium Hydroxide (Milk Of Magnesia Liq) 30 ml Q12H PRN PO MILD - MODERATE CONSTIPATION; Start 03/06/17 at 22:45 Sennosides (Senokot) 17.2 mg Q12H PRN PO MODERATE - SEVERE CONSTIPATION; Start 03/06/17 at 22:45 Bisacodyl (Dulcolax Supp) 10 mg DAILY PRN RECTAL SEVERE CONSITIPATION; Start at 22:45 Lactulose (Lactulose Liq) 30 ml DAILY PRN PO SEVERE CONSITIPATION; Start at 22:45 Aspirin 81 mg 81 mg DAILY CHEW Last administered on 03/09/17 08:01; Start 08/12 at 22:45 Azithromycin 500 mg/Sodium Chloride 250 ml @ 250 mls/hr Q24H IV Last administered on 03/09/17 00:39; Start 03/06/17 at 23:00 Piperacillin Sod/ Tazobactam Sod (Zosyn 2.25 Gm Premix) 50 ml @ 100 mls/hr Q6H IV Last administered on 03/09/17 03:07; Start 03/07/17 at 04:00 Dextrose (D50w (Vial) Inj) 50 ml UNSCH PRN IV HYPOGLYCEMIA-SEE COMMENTS; Start 03/06/17 at 23:45; Stop 03/07/17 at 02:15; Status DC Glucagon (Glucagon Inj) 1 mg UNSCH PRN OTHER HYPOGLYCEMIA-SEE COMMENTS; Start 03/06/17 at 23:45; Stop 03/07/17 at 02:15; Status DC Insulin Aspart (NovoLOG SUPPLEMENTAL SCALE) 1 Q6H SQ ; Start 03/06/17 at 23:45; Stop 03/07/17 at 02:13; Status DC Dextrose (D50w (Vial) Inj) 50 ml UNSCH PRN IV HYPOGLYCEMIA-SEE COMMENTS; Start 03/07/17 at 02:15 Glucagon (Glucagon Inj) 1 mg UNSCH PRN OTHER HYPOGLYCEMIA-SEE COMMENTS; Start 03/07/17 at 02:15 Insulin Aspart (NovoLOG SUPPLEMENTAL SCALE) 1 Q6H SQ Last administered on 03:39; Start 03/07/17 at 02:15; Stop 03/07/17 at 05:40; Status DC Insulin Aspart (NovoLOG SUPPLEMENTAL SCALE) 1 Q4H SQ Last administered on 17:30; Start 03/07/17 at 06:00 Methylprednisolone Sodium Succinate (SoluMEDROL INJ) 40 mg Q12H IV PUSH Last administered on 03/09/17 05:35; Start 03/07/17 at 06:00 Oxycodone/ Acetaminophen (Percocet 5-325 Mg) 1 tab Q6H PRN PO PAIN 3-10 Last administered on 03/09/17 08:01; Start 03/07/17 at 08:00 Date of Insertion: Mar 06, 2017 A/P Assessment and Plan A/P Acute encephalopathy-resolved Peripheral neuropathy CT brain negative resume gabapentin upon discharge. Acute on chronic hypercapnic respiratory failure- improved. COPD O2 home dependency Second hand smoke exposure Community acquired pneumonia continue oxygen and IV solumedrol. Abx as per below VQ low prob for PE 03/06 CT chest - bilateral infiltrates c/w pneumonia Coronary artery disease with prior stents Hypertension Hyperlipidemia 03/07 2-D echo-EF 5055 percent, moderate mitral regurgitation, moderate tricuspid regurgitation, mild pulmonary hypertension 48mmHg BNP 80 Aspirin daily Continue statin Hold coreg for now until determine hemodynamic stability Received Lasix 40 mg IV in the emergency department. Does not appear to require further diuresis. Obesity Mild AST elevation Hypoalbuminemia Hiatal hernia Fatty liver Advanced to 1800-calorie ADA diet Hyponatremia-resolved acute kidney injury- improved significantly Patient may have CKD but she is unaware of any history of that. Muniz in place. Monitor intake and output. Monitor electrolytes and replace as indicated. On 0.9 NaCl at 100 mm per hour Nephrology consulted-Dr. Atkins dc muniz cath Acute right lower lobe pneumonia Received vancomycin and Zosyn in the emergency department. Will continue on Zosyn 2.25 IV every 6 hours adjusted for renal function, azithromycin for atypical coverage. blood cultures negative and sputum culture with klebsiella and enterobacter 03/06 Urine Legionella and pneumococcal antigen- negative UA negative for evidence of infection. Anemia of unknown chronicity-fairly stable. Diabetes mellitus Hold metformin and glimepiride. Medium dose insulin sliding scale q4 hours. Monitor closely while on steroids, may need additional insulin coverage and/or quick steroid taper. PT evaluation and treat patient to be out of bed up and ambulating. PROPH: Heparin 5000 subcutaneous q12 for DVT prophylaxis. Protonix 40 mg daily for stress ulcer prophylaxis. transfer to telemetry. d/w the RN. Discharge Planning possible dc home tomorrow if stable. Lance Mccormack MD Mar 09, 2017 10:03
--- NOTE | 2017-03-09 16:33 | HHI.NPPN ---
Subjective History of Present Illness 77-year-old female with past medical history of hypertension, diabetes mellitus, ischemic heart disease, chronic obstructive pulmonary disease, possible chronic kidney disease, came to the hospital with complaint of shortness of breath. The patient lives up [place] and she is visiting here and has been traveling in the car for 8 hours from [place] and started having cough productive of brownish sputum and worsening shortness of breath. Additional Remarks Patient is alert, now breathing is better, clinically same, not in distress. Review of Systems General Constitutional: Fatigue Respiratory Lungs: SOB Cardiovascular Cardiac: Edema, CONNELLY Objective Data Data 03/08/17 03/09/17 19:00 07:00 Intake Total 1606 ml 2173 ml Output Total 2000 ml 2150 ml Balance -394 ml 23 ml Intake Oral 850 ml 720 ml IV Total 756 ml 1453 ml Output Urine Total 2000 ml 2150 ml # Bowel Movements 0 Vital Signs Date Time Temp Pulse Resp B/P Pulse Ox O2 Delivery O2 Flow Rate FiO2 03/09/17 08:10 97 Nasal Cannula 2.00 03/09/17 08:00 98.0 60 17 127/67 99 03/09/17 04:00 97.6 60 17 144/67 99 03/09/17 00:00 98.1 63 10 164/74 98 03/08/17 22:03 98 30 03/08/17 20:00 98.0 69 14 149/68 94 03/08/17 19:48 97 Nasal Cannula 2.00 03/08/17 19:00 97.8 92 18 135/69 100 03/08/17 18:00 90 -: 03/09/17 0500 03/09/17 0500 Physical Exam General Appearance: No Acute Distress, Comfortable Eyes Eye Exam: Pupils Equal Throat Throat Exam: Oral Mucosa [place] & Moist Neck Neck Exam: Neck Supple, Trachea Midline Pulmonary Resp Exam: Breath Sounds Equal, No Distress, Rhonchi, Decreased Bases Cardiology CV Exam: Regular, Normal Sinus Rhythm Gastrointestinal/Abdomen GI Exam: Soft, Non-Tender, Bowel Sounds Present Extremeties Extremities Exam: Moderate Edema, Pitting Edema Neurologic Neuro Exam: Alert, Awake, Oriented Psychiatric Psych Exam: Appropriate Responses Assessment/Plan Assessment Summary: SANTO/Acute Renal Failure Problem List: (1) Respiratory distress (2) Acute renal failure Plan Patient has good urine out put. Creatinine continue to improve. Most likely has SANTO due to ATN or pre renal. Continue IVF and antibiotics. Avoid Nephrotoxins. Problem Qualifiers (1) Acute renal failure: Qualified Code: N17.9 - Acute renal failure, unspecified acute renal failure type George Atkins MD Mar 09, 2017 16:33
[2017-03-09] MEDS: ATORVASTATIN 40 MG TAB PO SCH (21:36)
[2017-03-09] MEDS ORDERED: ENALAPRILAT 2.5 MG/2 ML VIAL IV PUSH ONE (22:15)
[2017-03-09] MEDS: NITROGLYCERIN 0.4 MG SL 25 TABS/BTL SL PRN ×2 (23:06→23:16)
[2017-03-10] VITALS (9 sets, daily range): BP systolic 137–182; BP diastolic 69–92; PULSE 55–105; RESP 18–24; TEMP 97.5–98.8; O2SAT 97–99
--- NOTE | 2017-03-10 00:02 | RADRPT ---
EXAM DATE/TIME: 03/09/2017 23:11 [facility] COMPARISON: CHEST SINGLE AP, March 07, 2017, 4:28. INDICATIONS : Shortness of breath. MEDICAL HISTORY : Hypertension. Diabetes mellitus type II. CAD SURGICAL HISTORY : Cholecystectomy. Coronary artery stent. Hiatal hernia. Right hip arthroplasty ENCOUNTER: Subsequent ACUITY: 4 - 6 days PAIN SCORE: 0/10 LOCATION: Bilateral chest FINDINGS: The lungs are clear without infiltrate, nodule, or mass. There is no appreciable pleural effusion fo r technique. Heart and mediastinum are unremarkable. CONCLUSION: No acute cardiopulmonary disease. Milan Huston MD on March 09, 2017 at 23:59 Board Certified Radiologist. This report was verified electronically.
[2017-03-10] MEDS: INSULIN ASPART SUPPLEMENTAL SCALE SQ SCH ×6 (01:43→22:28)
[2017-03-10] MEDS: PIPERACIL-TAZO 2.25 GM PREMIX 50 ML IV SCH ×4 (03:31→21:09)
[2017-03-10] MEDS: CHLORHEXIDINE GLUCONATE 2 % 1 PACK (2 CLOTHS) TOP SCH (04:00)
[2017-03-10] MEDS: methylPREDNISolone SOD SUCC 40 MG/1 ML VIAL IV PUSH SCH ×2 (05:21→17:45)
[2017-03-10] MEDS: RESP: ALBUTEROL 2.5 MG/IPRATROPIUM 0.5 MG NEB (SCH) NEB ×3 (08:45→21:22)
[2017-03-10] MEDS: FLUTICASONE 100 MCG/VILANTEROL 25 MCG INHALER INH SCH (09:00)
[2017-03-10] MEDS: DOCUSATE SODIUM 50 MG/SENNA 8.6 MG TAB PO SCH ×2 (09:00→21:00)
[2017-03-10] MEDS: ASPIRIN 81 MG CHEW TAB CHEW SCH (10:17)
[2017-03-10] MEDS: PANTOPRAZOLE SODIUM 40 MG VIAL IV SCH (10:18)
[2017-03-10] MEDS: SODIUM CHLORIDE 0.9% FLUSH 10 ML FLUSH SCH ×2 (10:19→21:13)
[2017-03-10] MEDS: HEPARIN SODIUM - SQ 10,000 UNITS/ML VIAL SQ SCH ×2 (11:27→22:19)
--- NOTE | 2017-03-10 11:38 | HHI.PR ---
Subjective Remarks in no acute distress. has occasional cough. no fever. had some chest pain earlier today. wants to go home today. d/w the RN. Objective Vitals Vital Signs Date Time Temp Pulse Resp B/P Pulse Ox O2 Delivery O2 Flow Rate FiO2 03/10/17 08:47 99 Nasal Cannula 2.00 03/10/17 08:00 98.8 55 22 137/90 98 03/10/17 04:00 97.5 56 20 182/84 99 03/10/17 00:00 97.6 55 18 160/69 97 03/09/17 22:03 97 Nasal Cannula 2.00 03/09/17 20:30 97.5 56 20 199/88 99 03/09/17 20:00 85 03/09/17 17:20 97.3 70 20 183/84 98 03/09/17 12:00 60 03/09/17 11:45 97.2 66 20 164/77 97 I/O 03/09/17 03/09/17 03/09/17 03/10/17 03/10/17 03/10/17 07:00 15:00 23:00 07:00 15:00 23:00 Intake Total 1076 ml 0 ml 240 ml 480 ml Output Total 950 ml 4 ml Balance 126 ml -4 ml 240 ml 480 ml Intake Oral 240 ml 0 ml 240 ml 480 ml IV Total 836 ml Output Urine Total 950 ml 4 ml # Voids 3 3 # Bowel Movements 0 3 3 3 Result Diagram: 03/09/17 0500 03/09/17 0500 Imaging Last Impressions Chest X-Ray 03/09/17 0000 Signed Impressions: Service Date/Time: Thursday, March 09, 2017 23:11 - CONCLUSION: No acute cardiopulmonary disease. KLupe Huston MD Lower Extremity Ultrasound 03/07/17 0000 Signed Impressions: Service Date/Time: Tuesday, March 07, 2017 08:32 - CONCLUSION: No evidence of deep venous thrombosis within the lower extremities. Salbador Pendleton MD Abdomen Ultrasound 03/07/17 0000 Signed Impressions: Service Date/Time: Tuesday, March 07, 2017 08:21 - CONCLUSION: 1. Increased echogenicity of the liver suggesting fatty infiltration. Rob Patten MD Head CT 03/06/17 194 Signed Impressions: Service Date/Time: Monday, March 06, 2017 20:01 - CONCLUSION: No acute findings in the brain. Vahid Wiseman MD Lung Scan-V Nuclear Medicine 03/06/17 1916 Signed Impressions: Service Date/Time: Monday, March 06, 2017 20:34 - CONCLUSION: 1. Matched ventilation/perfusion defects in the right lung base with the ventilatory defects larger than the perfusion defects. 2. No mismatched perfusion defects. 3. The overall impression is of low probability pulmonary embolism. Vahid Wiseman MD Chest CT 03/06/17 0000 Signed Impressions: Service Date/Time: Monday, March 06, 2017 23:03 - CONCLUSION: Bilateral infiltrates suspicious for pneumonia. Milan Huston MD Objective Remarks GENERAL: This is a well-nourished, well-developed patient, in no apparent distress. CARDIOVASCULAR: Regular rate and regular rhythm without murmurs, gallops, or rubs. RESPIRATORY: diminished air entry in bases. GASTROINTESTINAL: Abdomen soft, non-tender, nondistended. Normal, active bowel sounds MUSCULOSKELETAL: Extremities without clubbing, cyanosis, or edema. NEURO: Alert & Oriented x4 to person, place, time, situation. Moves all ext x4 Procedures none Medications and IVs Current Medications Furosemide (Lasix Inj) 40 mg ONCE ONCE IV PUSH Last administered on 03/06/17 21:20; Start 03/06/17 at 19:30; Stop 03/06/17 at 19:31; Status DC Methylprednisolone Sodium Succinate (SoluMEDROL INJ) 125 mg ONCE ONCE IV PUSH Last administered on 03/06/17 21:20; Start 03/06/17 at 19:30; Stop 03/06/17 at 19:31; Status DC Albuterol/ Ipratropium 1 ampule 1 ampule Q15M INH Last administered on 19:36; Start 03/06/17 at 19:30; Stop 03/06/17 at 19:46; Status DC Vancomycin HCl 1000 mg/Sodium Chloride 250 ml @ 250 mls/hr ONCE ONCE IV Last administered on 03/06/17 21:28; Start 03/06/17 at 21:15; Stop 03/06/17 at 22:14 ; Status DC Piperacillin Sod/ Tazobactam Sod (Zosyn 2.25 Gm Premix) 50 ml @ 100 mls/hr ONCE ONCE IV Last administered on 03/07/17 00:26; Start 03/06/17 at 22:30; Stop 03/06/17 at 22:59; Status DC Methylprednisolone Sodium Succinate (SoluMEDROL INJ) 40 mg Q8HR IV PUSH Last administered on 03/07/17 04:51; Start 03/07/17 at 06:00; Stop 03/07/17 at 06:00 ; Status DC Albuterol/ Ipratropium (Duoneb Neb) 1 ampule Q6HR NEB NEB Last administered on 03/10/17 08:45; Start 03/06/17 at 22:15 Albuterol Sulfate (Albuterol Neb) 2.5 mg Q2HR NEB PRN NEB WHEEZING; Start 03/06 at 22:15 Atorvastatin Calcium (Lipitor) 40 mg HS PO Last administered on 03/09/17 21:36 ; Start 03/07/17 at 21:00 Fluticasone/ Vilanterol 1 puff 1 puff DAILY INH Last administered on 03/10/17 09:00; Start 03/07/17 at 09:00 Sodium Chloride (NS 1000 ml Inj) 1,000 ml @ 100 mls/hr Q10H IV Last administered on 03/09/17 21:36; Start 03/06/17 at 22:33; Status Hold Sodium Chloride (NS Flush) 2 ml UNSCH PRN .XX FLUSH AFTER USING IV ACCESS; Start 03/06/17 at 22:45 Sodium Chloride (NS Flush) 2 ml BID .XX Last administered on 03/10/17 10:19; Start 03/07/17 at 09:00 Acetaminophen (Tylenol) 650 mg Q6H PRN PO PAIN 1-2 AND/OR FEVER >101F; Start at 22:45 Oxycodone/ Acetaminophen (Percocet 5-325 Mg) 1 tab Q4H PRN PO PAIN SCALE 1 TO 5; Start 03/06/17 at 22:45; Stop 03/07/17 at 08:06; Status DC Morphine Sulfate (Morphine Inj) 2 mg Q2H PRN IV PAIN SCALE 6 TO 10 Last administered on 03/09/17 21:26; Start 03/06/17 at 22:45 Pantoprazole Sodium (Protonix Inj) 40 mg DAILY IV Last administered on 10:18; Start 03/07/17 at 09:00 Ondansetron HCl (Zofran Inj) 4 mg Q6H PRN IV NAUSEA OR VOMITING Last administered on 03/08/17 21:32; Start 03/06/17 at 22:45 Heparin Sodium (Porcine) (Heparin Inj) 5,000 units Q12H SQ Last administered on 03/09/17 21:40; Start 03/06/17 at 23:00 Miscellaneous Information 1 Q361D XX ; Start 03/06/17 at 22:45 Chlorhexidine Gluconate (Chlorhexidine 2% Cloth) 3 pack Taper DAILY@04 TOP Last administered on 03/09/17 03:37; Start 03/07/17 at 04:00; Stop 03/03/18 at 03:59 Chlorhexidine Gluconate (Chlorhexidine 2% Cloth) 3 pack UNSCH PRN TOP HYGIENIC CARE; Start 03/06/17 at 22:45 Senna/Docusate Sodium (Sarahi-Colace) 1 tab BID PO Last administered on 21:37; Start 03/07/17 at 09:00 Magnesium Hydroxide (Milk Of Magnesia Liq) 30 ml Q12H PRN PO MILD - MODERATE CONSTIPATION; Start 03/06/17 at 22:45 Sennosides (Senokot) 17.2 mg Q12H PRN PO MODERATE - SEVERE CONSTIPATION; Start 03/06/17 at 22:45 Bisacodyl (Dulcolax Supp) 10 mg DAILY PRN RECTAL SEVERE CONSITIPATION; Start at 22:45 Lactulose (Lactulose Liq) 30 ml DAILY PRN PO SEVERE CONSITIPATION; Start at 22:45 Aspirin 81 mg 81 mg DAILY CHEW Last administered on 03/10/17 10:17; Start 08/12 at 22:45 Azithromycin 500 mg/Sodium Chloride 250 ml @ 250 mls/hr Q24H IV Last administered on 03/09/17 23:39; Start 03/06/17 at 23:00 Piperacillin Sod/ Tazobactam Sod (Zosyn 2.25 Gm Premix) 50 ml @ 100 mls/hr Q6H IV Last administered on 03/10/17 03:31; Start 03/07/17 at 04:00 Dextrose (D50w (Vial) Inj) 50 ml UNSCH PRN IV HYPOGLYCEMIA-SEE COMMENTS; Start 03/06/17 at 23:45; Stop 03/07/17 at 02:15; Status DC Glucagon (Glucagon Inj) 1 mg UNSCH PRN OTHER HYPOGLYCEMIA-SEE COMMENTS; Start 03/06/17 at 23:45; Stop 03/07/17 at 02:15; Status DC Insulin Aspart (NovoLOG SUPPLEMENTAL SCALE) 1 Q6H SQ ; Start 03/06/17 at 23:45; Stop 03/07/17 at 02:13; Status DC Dextrose (D50w (Vial) Inj) 50 ml UNSCH PRN IV HYPOGLYCEMIA-SEE COMMENTS; Start 03/07/17 at 02:15 Glucagon (Glucagon Inj) 1 mg UNSCH PRN OTHER HYPOGLYCEMIA-SEE COMMENTS; Start 03/07/17 at 02:15 Insulin Aspart (NovoLOG SUPPLEMENTAL SCALE) 1 Q6H SQ Last administered on 03:39; Start 03/07/17 at 02:15; Stop 03/07/17 at 05:40; Status DC Insulin Aspart (NovoLOG SUPPLEMENTAL SCALE) 1 Q4H SQ Last administered on 05:30; Start 03/07/17 at 06:00 Methylprednisolone Sodium Succinate (SoluMEDROL INJ) 40 mg Q12H IV PUSH Last administered on 03/10/17 05:21; Start 03/07/17 at 06:00 Oxycodone/ Acetaminophen (Percocet 5-325 Mg) 1 tab Q6H PRN PO PAIN 3-10 Last administered on 03/09/17 08:01; Start 03/07/17 at 08:00 Enalaprilat (Vasotec Inj) 2.5 mg ONCE ONCE IV PUSH Last administered on 22:19; Start 03/09/17 at 22:15; Stop 03/09/17 at 22:16; Status DC Nitroglycerin (Nitrostat Sl) 0.4 mg Q5M PRN SL CHEST PAIN Last administered on 03/09/17 23:16; Start 03/09/17 at 23:00 Date of Insertion: Mar 06, 2017 A/P Assessment and Plan A/P Acute encephalopathy-resolved Peripheral neuropathy CT brain negative resume gabapentin upon discharge. Acute on chronic hypercapnic respiratory failure- improved. COPD exacerbation O2 home dependency Second hand smoke exposure Community acquired pneumonia continue oxygen and switch to po prednisone. switch to po abx VQ low prob for PE 03/06 CT chest - bilateral infiltrates c/w pneumonia chest pain Coronary artery disease with prior stents Hypertension Hyperlipidemia 03/07 2-D echo-EF 5055 percent, moderate mitral regurgitation, moderate tricuspid regurgitation, mild pulmonary hypertension 48mmHg BNP 80 Aspirin daily Continue statin resume coreg check the cardiac enzymes Obesity Mild AST elevation Hypoalbuminemia Hiatal hernia Fatty liver Advanced to 1800-calorie ADA diet Hyponatremia-resolved acute kidney injury- improved significantly Patient may have CKD but she is unaware of any history of that. Nephrology consulted-Dr. Atkins Acute right lower lobe pneumonia switch to po antibiotic. blood cultures negative and sputum culture with klebsiella and enterobacter 03/06 Urine Legionella and pneumococcal antigen- negative UA negative for evidence of infection. Anemia of unknown chronicity-fairly stable. Diabetes mellitus Hold metformin and resume glimepiride. PT evaluation and treat patient to be out of bed up and ambulating. Lance Mccormack MD Mar 10, 2017 11:38 time spent 35 min. Lance Mccormack MD Mar 10, 2017 11:38
[2017-03-10] MEDS ORDERED: LEVA250T14 PO (11:43)
[2017-03-10] MEDS ORDERED: VENTAER INH (11:43)
[2017-03-10] MEDS ORDERED: PRED5TAB PO (11:43)
--- NOTE | 2017-03-10 11:44 | HHI.DS ---
Discharge Summary Admission Date Mar 06, 2017 at 21:45 Discharge Date: Mar 10, 2017 Admitting Diagnosis Encephalopathy, Sepsis, Hypoxia. (1) Respiratory distress ICD Code: R06.00 Diagnosis: Principal (2) Acute renal failure ICD Code: N17.9 Diagnosis: Principal Procedures none Brief History - From Admission 77 yo WF with PMH of COPD on 4 L home O2, HTN, DM, HLD, peripheral neuropathy, CAD with prior stents who presents to [facility] [place] with shortness of breath. Her daughter states she was not feeling well since 03/03, though may be related to allergies. Today she has been travelling in a car for about 8 hours as she and her family drove from [facility]. She started having a cough today, productive of brown sputum. Did not check her temperature. Denied chest pain. She got to the hotel and became dyspneic and could not get up from a bench where she stopped to rest. Her daughter states she was lethargic and confused. Sats were 92% in the field. She was placed on Bipap on arrival and administered Lasix 40 mg IV and Solu-Medrol 125 mg IV and DuoNeb. After on Bipap ~ 45 min ABG demonstrated hypercapnea with pH 7.30/PaCO2 45/PA O2 to 44. She remains on BiPAP 10 over 5 with FiO2 35%. Her mental status has improved significantly per discussion with RN in patient's daughter. She had a head CT that was negative. VQ scan showed low probability for PE. There is a ventilatory defect in the right base. CXR showed no significant infiltrate. CT chest noncontrast is pending. She denies chest pain or hemoptysis. She does not carry the diagnosis of CHF. She has chronic bipedal edema. Her daughter states her edema is actually currently better than usual. CBC/BMP: 03/09/17 0500 03/09/17 0500 Significant Findings Laboratory Tests Test 03/08/17 03/09/17 03/10/17 03/10/17 05:11 05:00 00:32 05:02 Red Blood Count 2.88 MIL/MM3 3.01 MIL/MM3 (4.00-5.30) (4.00-5.30) Hemoglobin 8.3 GM/DL 8.8 GM/DL (11.6-15.3) (11.6-15.3) Hematocrit 25.1 % 26.1 % (35.0-46.0) (35.0-46.0) Neutrophils (%) (Auto) 84.2 % (16.0-70.0) Lymphocytes (%) (Auto) 6.8 % (9.0-44.0) Monocytes (%) (Auto) 8.9 % (0.0-8.0) Lymphocytes # (Auto) 0.5 TH/MM3 (1.0-4.8) Blood Urea Nitrogen 59 MG/DL (7-18) 43 MG/DL (7-18) Creatinine 2.29 MG/DL 1.42 MG/DL (0.50-1.00) (0.50-1.00) Estimat Glomerular Filtration 21 ML/MIN (>89) 36 ML/MIN (>89) Rate Random Glucose 141 MG/DL 162 MG/DL (74-106) (74-106) Calcium Level 8.0 MG/DL 8.2 MG/DL (8.5-10.1) (8.5-10.1) Magnesium Level 2.8 MG/DL 2.7 MG/DL (1.5-2.5) (1.5-2.5) Chloride Level 108 MEQ/L (98-107) B-Type Natriuretic Peptide 552 PG/ML (0-100) Troponin I 0.07 NG/ML (0.02-0.05) Imaging Last Impressions Chest X-Ray 03/09/17 Signed Impressions: Service Date/Time: Thursday, March 09, 2017 23:11 - CONCLUSION: No acute cardiopulmonary disease. Milan Huston MD Lower Extremity Ultrasound 03/07/17 Signed Impressions: Service Date/Time: Tuesday, March 07, 2017 08:32 - CONCLUSION: No evidence of deep venous thrombosis within the lower extremities. Salbador Pendleton MD Abdomen Ultrasound 03/07/17 Signed Impressions: Service Date/Time: Tuesday, March 07, 2017 08:21 - CONCLUSION: 1. Increased echogenicity of the liver suggesting fatty infiltration. Rob Patten MD Head CT [id number]/06/[id number] Signed Impressions: Service Date/Time: Monday, March 06, 2017 20:01 - CONCLUSION: No acute findings in the brain. Vahid Wiseman MD Lung Scan-VQ Nuclear Medicine [id number] Signed Impressions: Service Date/Time: Monday, March 06, 2017 20:34 - CONCLUSION: 1. Matched ventilation/perfusion defects in the right lung base with the ventilatory defects larger than the perfusion defects. 2. No mismatched perfusion defects. 3. The overall impression is of low probability pulmonary embolism. Vahid Wiseman MD Chest CT 03/06/17 0000 Signed Impressions: Service Date/Time: Monday, March 06, 2017 23:03 - CONCLUSION: Bilateral infiltrates suspicious for pneumonia. Milan Huston MD PE at Discharge GENERAL: This is a well-nourished, well-developed patient, in no apparent distress. CARDIOVASCULAR: Regular rate and regular rhythm without murmurs, gallops, or rubs. RESPIRATORY: diminished air entry in bases. GASTROINTESTINAL: Abdomen soft, non-tender, nondistended. Normal, active bowel sounds MUSCULOSKELETAL: Extremities without clubbing, cyanosis, or edema. NEURO: Alert & Oriented x4 to person, place, time, situation. Moves all ext x4 Hospital Course Acute encephalopathy-resolved Peripheral neuropathy CT brain negative resume gabapentin upon discharge. Acute on chronic hypercapnic respiratory failure- improved. COPD exacerbation O2 home dependency Second hand smoke exposure Community acquired pneumonia continue oxygen and switch to po prednisone. switch to po abx VQ low prob for PE 03/06 CT chest - bilateral infiltrates c/w pneumonia Coronary artery disease with prior stents Hypertension Hyperlipidemia 03/07 2-D echo-EF 5055 percent, moderate mitral regurgitation, moderate tricuspid regurgitation, mild pulmonary hypertension 48mmHg BNP 80 Aspirin daily Continue statin resume coreg Obesity Mild AST elevation Hypoalbuminemia Hiatal hernia Fatty liver Advanced to 1800-calorie ADA diet Hyponatremia-resolved acute kidney injury- improved significantly Patient may have CKD but she is unaware of any history of that. Nephrology consulted-Dr. Atkins Acute right lower lobe pneumonia switch to po antibiotic. blood cultures negative and sputum culture with klebsiella and enterobacter 03/06 Urine Legionella and pneumococcal antigen- negative UA negative for evidence of infection. Anemia of unknown chronicity-fairly stable. Diabetes mellitus Hold metformin and resume glimepiride. PT evaluation and treat patient to be out of bed up and ambulating. Pt Condition on Discharge: Fair Discharge Disposition: Discharge Home Discharge Time: > 30 minutes Discharge Instructions DIET: Follow Instructions for: Heart Healthy Diet, Diabetic Diet Activities you can perform: Regular-No Restrictions Follow up Referrals: PCP Follow-up New Medications: Albuterol 18 GM Inh (Ventolin Hfa 18 GM Inh) 90 Mcg/Act Aer 2 PUFF INH Q4-6H PRN SHORTNESS OF BREATH #1 Ref 0 INHALER Levofloxacin (Levaquin) 250 Mg Tablet 250 MG PO DIRECTED 500 mg po on first day then 250 mg po daily for six days. pneumonia #8 Ref 0 TAB Prednisone (Prednisone) 5 Mg Tab 5 MG PO DIRECTED 40 mg po daily for two days then 30 mg po daily for two days then 20 mg po daily for two days then 10 mg po daily for two days then 5 mg po daily for two days then stop. copd Days 10 Ref 0 TAB Continued Medications: Albuterol (Albuterol) 2 Mg Tab 2 MG PO TID Asthma Management #[address] Ref [address] (Aspir-81) 81 Mg Tabdr Atorvastatin (Atorvastatin) 40 Mg Tab 40 MG PO HS Cholesterol Management #30 Ref 0 TAB Carvedilol (Carvedilol) 25 Mg Tab 25 MG PO BID #60 Ref 0 TAB Fluticasone-Vilanterol Inh (Breo Ellipta Inh) 100-25 Mcg/Act Inh 1 PUFF INH DAILY Use daily at the same time. #1 Ref 0 INHALER Gabapentin (Gabapentin) 300 Mg Cap 300 MG PO TID #90 Ref 0 CAP Glimepiride (Glimepiride) 2 Mg Tab 2 MG PO BIDAC Blood Sugar Management #60 Ref 0 TAB Magnesium Oxide (Magnesium) 400 Mg Tablet 250 MG PO DAILY Multiple Vitamins W/ Minerals (Cerovite Senior) 1 Tab Tab 10 MEQ PO DAILY Omeprazole (Omeprazole) 20 Mg Cap Oxycodone (Oxycodone) 10 Mg Tab 10 MG PO Q4HR Pain Management Ref 0 TAB Discontinued Medications: Furosemide (Furosemide) 40 Mg Tab 40 MG PO DAILY #30 Ref 0 TAB Meloxicam (Mobic) 15 Mg Tab 15 MG PO DAILY Ref 0 TAB Metformin (Metformin) 500 Mg Tab 500 MG PO BIDPC With meals Blood Sugar Management #60 Ref 0 TAB Quinapril-Hydrochlorothiazide (Quinapril-Hydrochlorothiazide) 20-12.5 Mg Tab 1 TAB PO DAILY Blood Pressure Management #30 Ref 0 TAB Lance Mccormack MD Mar 10, 2017 11:44
--- NOTE | 2017-03-10 11:44 | HHI.DCPOC ---
Discharge Care Plan Diagnosis: (1) Respiratory distress (2) Acute renal failure Your Health Problems Are: Cough Shortness of Breath Goals to Promote Your Health * To prevent worsening of your condition and complications * To maintain your health at the optimal level Directions to Meet Your Goals Take your medications as prescribed Follow your dietary instruction Follow activity as directed Keep your appointments as scheduled Take your immunizations and boosters as scheduled If your symptoms worsen call your PCP, if no PCP go to Urgent Care Center or Emergency Room Smoking is Dangerous to Your Health. Avoid second hand smoke Call the 24-hour hour crisis hotline for domestic abuse at Lance Mccormack MD Mar 10, 2017 11:44
--- NOTE | 2017-03-10 11:54 | HHI.NPPN ---
Subjective History of Present Illness 77-year-old female with past medical history of hypertension, diabetes mellitus, ischemic heart disease, chronic obstructive pulmonary disease, possible chronic kidney disease, came to the hospital with complaint of shortness of breath. The patient lives [place] and she is visiting here and has been traveling in the car for 8 hours from [place] and started having cough productive of brownish sputum and worsening shortness of breath. Additional Remarks Patient is alert, with nasal cannula, feeling better. Review of Systems General Constitutional: Fatigue Respiratory Lungs: SOB Cardiovascular Cardiac: Edema, CONNELLY Objective Data Data 03/09/17 03/10/17 19:00 07:00 Intake Total 0 ml 720 ml Output Total 4 ml Balance -4 ml 720 ml Intake Oral 0 ml 720 ml Output Urine Total 4 ml # Voids 6 # Bowel Movements 3 6 Vital Signs Date Time Temp Pulse Resp B/P Pulse Ox O2 Delivery O2 Flow Rate FiO2 03/10/17 08:47 99 Nasal Cannula 2.00 03/10/17 08:00 98.8 55 22 137/90 98 03/10/17 04:00 97.5 56 20 182/84 99 03/10/17 00:00 97.6 55 18 160/69 97 03/09/17 22:03 97 Nasal Cannula 2.00 03/09/17 20:30 97.5 56 20 199/88 99 03/09/17 20:00 85 03/09/17 17:20 97.3 70 20 183/84 98 03/09/17 12:00 60 -: 03/09/17 0500 03/09/17 0500 Physical Exam General Appearance: No Acute Distress, Comfortable Eyes Eye Exam: Pupils Equal Throat Throat Exam: Oral Mucosa [place] & Moist Neck Neck Exam: Neck Supple, Trachea Midline Pulmonary Resp Exam: Breath Sounds Equal, No Distress, Rhonchi, Decreased Bases Cardiology CV Exam: Regular, Normal Sinus Rhythm Gastrointestinal/Abdomen GI Exam: Soft, Non-Tender, Bowel Sounds Present Extremeties Extremities Exam: Moderate Edema, Pitting Edema Neurologic Neuro Exam: Alert, Awake, Oriented Psychiatric Psych Exam: Appropriate Responses Assessment/Plan Assessment Summary: SANTO/Acute Renal Failure Problem List: (1) Respiratory distress (2) Acute renal failure Plan Patient has good urine out put. Creatinine continue to improve. Most likely has SANTO due to ATN or pre renal. Continue IVF and antibiotics. Avoid Nephrotoxins. Has Chronic kidney disease also, possibly Hypertensive or Diabetic renal disease. QUEENIE and Complements negative. If D/C, will need out patient follow up. Problem Qualifiers (1) Acute renal failure: Qualified Code: N17.9 - Acute renal failure, unspecified acute renal failure type George Atkins MD Mar 10, 2017 11:54
--- NOTE | 2017-03-10 12:08 | HHI.FF ---
Face to Face Verification Diagnosis: (1) Respiratory distress Physical Therapy Order: Evaluate and Treat Home Health Nursing Order: Medical education Signs/symptoms of disease process Nursing assessment with vital signs I have seen patient Shyann Drew on 03/10/17. My clinical findings support the need for the requested home health care services because: Patient has SOB I certify that my clinical findings support that this patient is homebound because: Hx COPD- exertion dyspnea/weakness Lance Mccormack MD Mar 10, 2017 12:08
[2017-03-10] MEDS ORDERED: WHEEMIS3 (12:38)
[2017-03-10] MEDS: oxyCODONE/ACETAMINOPHEN 5 MG/325 MG TAB PO PRN ×2 (15:19→22:45)
[2017-03-10] MEDS: CARVEDILOL 12.5 MG TAB PO SCH ×2 (15:19→21:09)
--- NOTE | 2017-03-10 15:19 | EKG ---
Date Performed: 03/09/2017 Time Performed: 23:18:14 PTAGE: 77 years EKG: SINUS BRADYCARDIA BORDERLINE ECG INTERPRETATION BASED ON A DEFAULT AGE OF 40 YEARS Compared to prior tracing no significant change PREVIOUS TRACING : 03/07/2017 22.12 DOCTOR: Harman Garza Interpretating Date/Time 03/10/2017 15:18:17
[2017-03-10] MEDS ORDERED: MORPHINE SULFATE 4 MG/ML INJ IV ONE (18:00)
--- NOTE | 2017-03-10 18:37 | MB ---
cc: BRENT STEVENS M.D. DATE OF CONSULTATION: 03/10/2017. REASON FOR CONSULTATION: Evaluation for elevated troponin. HISTORY OF PRESENT ILLNESS Shyann Drew is a 76-year-old woman vacationing with her family from [place]. She has known severe COPD. She is on 4 liters of oxygen chronically. On the drive down, her oxygen ran out. Her daughter thought maybe she could last the additional couple hours it took to get to her hotel. By the time she got to her hotel, she got into a very extreme state. She was encephalopathic and was showing signs of hypercapnia and hypoxia and got admitted to the hospital. She had improved to the point where they were planning to let her go home but new issues have popped up. She describes having severe abdominal pain that started last night and has been present all day today. She says only thing that makes it better as oxycodone. I did speak to a nurse practitioner in [place] from Dr. All Amaya's office and she had a previous ER visit in September for abdominal pain. CT scan showed fatty liver and a moderate sized hiatal hernia, changes from a previous cholecystectomy and hysterectomy and some fatty necrosis in the lower abdomen. She does not have any typical angina. She has some slight epigastric tenderness I will describe later during her physical exam. She does have known coronary artery disease and in 2008 she had a bare-metal stent placed in her left anterior descending. She had a normal nuclear stress test in 2011 and a normal nuclear stress test in September of 2015. Information obtained from Dr. Amaya's nurse practitioner. She was in sinus rhythm this admission until today. Today she is noted to be in atrial fibrillation. I could not confirm she had a prior history of that through Dr. Amaya's office. The patient is quite adamant however that she has had atrial fibrillation picked up during her hospital stays in the past. She does not recall any discussion about anticoagulation however. Aside from the abdominal pain, she is not having any chest pain. There is no aggravation of her breathing at the present time. PAST MEDICAL HISTORY: Her past medical history includes: 1. COPD. 2. Hypertension. 3. Diabetes. 4. Hyperlipidemia. 5. Peripheral neuropathy. 6. Coronary artery disease with previous stent. PAST SURGICAL HISTORY: Past surgical history includes: 1. Hysterectomy. 2. Cholecystectomy. 3. Bilateral knee surgery. 4. Left rotator cuff surgery. 5. Open reduction internal fixation of the orbit. 6. Hiatal hernia. 7. Gastroesophageal reflux disease. MEDICATIONS: Her medication list is charted and includes: 1. Carvedilol 25 twice a day. 2. Atorvastatin 40 milligrams. 3. Quinapril / hydrochlorothiazide 20/12.5 daily. 4. Aspirin 81 milligrams. 5. Mobic. SOCIAL HISTORY: Significant for second-hand smoke exposure. FAMILY HISTORY: Her family history is noncontributory. REVIEW OF SYSTEMS: Review of systems unremarkable except as described above. PHYSICAL EXAMINATION: GENERAL: The physical exam reveals an obese elderly white female in mild to moderate distress. She says she is having some diarrhea. HEAD, EYES, EARS, NOSE, THROAT: Exam is unremarkable. NECK: Negative for JVD. CHEST: Shows diminished breath sounds. No recent rales or wheezes. CARDIAC: Exam shows S1-S2, irregular rate and rhythm, 1/6 systolic ejection murmur. ABDOMEN: Shows very slight epigastric tenderness. No masses. EXTREMITIES: Show no peripheral edema. CARDIOLOGY STUDIES: Earlier EKG showed no S-T changes. Today, she is in atrial fibrillation with controlled rate with no S-T changes. LABORATORY DATA: Troponin has gone from 0.04 to 0.07 to 0.13. BNP was 552. BUN and creatinine were severely elevated this admission. Her creatinine is currently down to 1.42. IMPRESSION: 1. Elevated troponin. She does not have a good story for angina. The troponin elevation is minimal. She has had two normal stress tests in the past five years but she has known coronary artery disease with a previous stent eight years ago. 2. Paroxysmal atrial fibrillation. From what the patient tells me, she has had this before but I could not verify this through Dr. Amaya's office. She has a high stroke risk score based on age, sex, hypertension, diabetes, coronary artery disease. RECOMMENDATIONS: I am repeating troponin and lab work in the morning. A repeat EKG in the morning. I do not think her stomach pain is cardiac in origin, particularly with the benign-appearing EKG and the severe discomfort she is in currently. May need to consider anticoagulation with Eliquis when she goes home, so she would need to come off meloxicam completely. Further therapy to be determined. MD SIDDHARTHA Nathan/JOE /4:26 PM /6:28 PM
[2017-03-10] MEDS: ATORVASTATIN 40 MG TAB PO SCH (21:09)
[2017-03-10] MEDS: AZITHROMYCIN INJ 500 MG in SODIUM CHLOR 0.9% 250 ML INJ 250 ML IV SCH (22:19)
[2017-03-11] VITALS: BP 153/84; PULSE 81; RESP 20; TEMP 96.3; O2SAT 99
[2017-03-11] MEDS: INSULIN ASPART SUPPLEMENTAL SCALE SQ SCH ×4 (02:00→15:12)
[2017-03-11] MEDS: PIPERACIL-TAZO 2.25 GM PREMIX 50 ML IV SCH ×3 (03:15→16:12)
[2017-03-11] MEDS: CHLORHEXIDINE GLUCONATE 2 % 1 PACK (2 CLOTHS) TOP SCH (03:21)
[2017-03-11 04:00] VITALS: BP 160/80; PULSE 80; RESP 20; TEMP 96.2; O2SAT 98
[2017-03-11] MEDS: methylPREDNISolone SOD SUCC 40 MG/1 ML VIAL IV PUSH SCH (05:36)
[2017-03-11] MEDS ORDERED: PILL SPLITTER OTHER PRN (07:45)
--- NOTE | 2017-03-11 07:46 | PD.CARD.PN ---
Subjective Subjective Remarks c/o diarrhea. Stomach pain resolved. No chest pain Objective Medications Current Medications Medications (Trade) Dose Ordered Sig/Shannan Route Start Time Stop Time Status Last Admin (Lipitor) 40 mg HS PO 03/07/17 21:00 03/10/17 21:09 Fluticasone/ Vilanterol 1 puff 1 puff DAILY INH 03/07/17 09:00 03/10/17 09:00 (NS 1000 ml Inj) 1,000 ml @ 100 mls/hr Q10H IV 03/06/17 22:33 Hold 03/09/17 21:36 (NS Flush) 2 ml UNSCH PRN .XX 03/06/17 22:45 (NS Flush) 2 ml BID .XX 03/07/17 09:00 03/10/17 21:13 (Tylenol) 650 mg Q6H PRN PO 03/06/17 22:45 (Morphine Inj) 2 mg Q2H PRN IV 03/06/17 22:45 03/09/17 21:26 (Protonix Inj) 40 mg DAILY IV 03/07/17 09:00 03/10/17 10:18 (Zofran Inj) 4 mg Q6H PRN IV 03/06/17 22:45 03/08/17 21:32 (Heparin Inj) 5,000 units Q12H SQ 03/06/17 23:00 03/10/17 22:19 Miscellaneous Information 1 Q361D XX 03/06/17 22:45 (Chlorhexidine 2% Cloth) 3 pack Taper DAILY@04 TOP 03/07/17 04:00 03/03/18 03:59 03/11/17 03:21 (Chlorhexidine 2% Cloth) 3 pack UNSCH PRN TOP 03/06/17 22:45 (Sarahi-Colace) 1 tab BID PO 03/07/17 09:00 03/09/17 21:37 (Milk Of Magnesia Liq) 30 ml Q12H PRN PO 03/06/17 22:45 (Senokot) 17.2 mg Q12H PRN PO 03/06/17 22:45 (Dulcolax Supp) 10 mg DAILY PRN RECTAL 03/06/17 22:45 (Lactulose Liq) 30 ml DAILY PRN PO 03/06/17 22:45 Aspirin 81 mg 81 mg DAILY CHEW 03/06/17 22:45 03/10/17 10:17 Azithromycin 500 mg/Sodium Chloride 250 ml @ 250 mls/hr Q24H IV 03/06/17 23:00 03/10/17 22:19 (Zosyn 2.25 Gm Premix) 50 ml @ 100 mls/hr Q6H IV 03/07/17 04:00 03/11/17 03:15 (D50w (Vial) Inj) 50 ml UNSCH PRN IV 03/07/17 02:15 (Glucagon Inj) 1 mg UNSCH PRN OTHER 03/07/17 02:15 (NovoLOG SUPPLEMENTAL SCALE) 1 Q4H SQ 03/07/17 06:00 03/11/17 05:44 (SoluMEDROL INJ) 40 mg Q12H IV PUSH 03/07/17 06:00 03/11/17 05:36 (Percocet 5-325 Mg) 1 tab Q6H PRN PO 03/07/17 08:00 03/10/17 22:45 (Nitrostat Sl) 0.4 mg Q5M PRN SL 03/09/17 23:00 03/09/17 23:16 (Coreg) 25 mg BID PO 03/10/17 14:00 03/10/17 21:09 Vital Signs / I&O Vital Signs Date Time Temp Pulse Resp B/P Pulse Ox O2 Delivery O2 Flow Rate FiO2 03/11/17 04:00 96.2 80 20 160/80 98 03/11/17 00:52 20 03/11/17 00:00 96.3 81 20 153/84 99 03/10/17 22:00 85 03/10/17 21:24 98 Nasal Cannula 2.00 03/10/17 20:00 98.5 93 20 160/92 98 03/10/17 16:00 98.8 83 20 162/83 99 03/10/17 12:00 98.6 105 24 176/88 99 03/10/17 08:47 99 Nasal Cannula 2.00 03/10/17 08:00 98.8 55 22 137/90 98 I/O 03/10/17 03/10/17 03/10/17 03/11/17 03/11/17 03/11/17 07:00 15:00 23:00 07:00 15:00 23:00 Intake Total 480 ml 1227 ml 576 ml Balance 480 ml 1227 ml 576 ml Intake Oral 480 ml 1080 ml 240 ml IV Total 147 ml 336 ml # Voids 3 11 2 # Bowel Movements 3 3 Physical Exam Obese WF, NAD Chest Clear CV S1 S2 irr irr Tele: AF with CVR Abd: soft Ext: no edema Laboratory Laboratory Tests Test 03/10/17 03/10/17 12:01 17:53 Troponin I 0.13 NG/ML 0.12 NG/ML Assessment and Plan Problem List: (1) Paroxysmal atrial fibrillation Assessment and Plan: High CVA risk. Add Eliquis 5mg bid (2) Coronary artery disease Assessment and Plan: Prior bare metal LAD stent. Last 2 stress tests negative (3) Elevated troponin Assessment and Plan: No angina. ? spurious. Medical therapy (4) Benign essential hypertension Assessment and Plan: Add amlodipine 2.5 mg Assessment and Plan Cardiology available prn. Please call if questions. Jl Miller MD Mar 11, 2017 07:46
[2017-03-11 07:52] LABS: MYELOPEROXIDASE LESS THAN 1.0 AI (<1.0); PROTEINASE-3 LESS THAN 1.0 AI (<1.0)
[2017-03-11 08:00] VITALS: BP 191/91; PULSE 77; RESP 18; TEMP 97.8; O2SAT 97
[2017-03-11] MEDS: FLUTICASONE 100 MCG/VILANTEROL 25 MCG INHALER INH SCH (09:00)
[2017-03-11] MEDS ORDERED: amLODIPine BESYLATE 5 MG TAB PO SCH (09:00)
[2017-03-11] MEDS: DOCUSATE SODIUM 50 MG/SENNA 8.6 MG TAB PO SCH (09:00)
[2017-03-11] MEDS ORDERED: APIXABAN 5 MG TABLET PO SCH (09:00)
[2017-03-11 09:18] LABS: AMYLASE 42 U/L (25-115); ANION GAP 9 MEQ/L (5-15); AST (GOT) 14 U/L (15-37); BICARBONATE 27.7 MEQ/L (21.0-32.0); BLOOD UREA NITROGEN 23 MG/DL (7-18); CHLORIDE 104 MEQ/L (98-107); GLOMERULAR FILTRATION RATE 52 ML/MIN (>89); POTASSIUM 3.8 MEQ/L (3.5-5.1); SODIUM (NA) 141 MEQ/L (136-145)
[2017-03-11 09:27] LABS: ALKALINE PHOSPHATASE 84 U/L (45-117); ALT (GPT) 47 U/L (10-53); TOTAL BILIRUBIN ADULT 0.6 MG/DL (0.2-1.0)
[2017-03-11] MEDS: CARVEDILOL 12.5 MG TAB PO SCH (09:41)
[2017-03-11] MEDS: ASPIRIN 81 MG CHEW TAB CHEW SCH (09:41)
[2017-03-11] MEDS: PANTOPRAZOLE SODIUM 40 MG VIAL IV SCH (09:43)
[2017-03-11] MEDS: HEPARIN SODIUM - SQ 10,000 UNITS/ML VIAL SQ SCH (09:43)
[2017-03-11] MEDS: SODIUM CHLORIDE 0.9% FLUSH 10 ML FLUSH SCH (09:46)
[2017-03-11] MEDS: oxyCODONE/ACETAMINOPHEN 5 MG/325 MG TAB PO PRN ×2 (09:59→16:11)
--- NOTE | 2017-03-11 11:15 | HHI.NPPN ---
Subjective History of Present Illness 77-year-old female with past medical history of hypertension, diabetes mellitus, ischemic heart disease, chronic obstructive pulmonary disease, possible chronic kidney disease, came to the hospital with complaint of shortness of breath. [place] and she is visiting here and has been traveling in the car for 8 hours from [place] and started having cough productive of brownish sputum and worsening shortness of breath. Additional Remarks Patient is alert, with nasal cannula, complain of loose BM. Review of Systems General Constitutional: Fatigue Respiratory Lungs: SOB Cardiovascular Cardiac: Edema, CONNELLY Objective Data Data 03/10/17 03/11/17 19:00 07:00 Intake Total 720 ml 1083 ml Balance 720 ml 1083 ml Intake Oral 720 ml 600 ml IV Total 483 ml # Voids 10 3 # Bowel Movements 3 Vital Signs Date Time Temp Pulse Resp B/P Pulse Ox O2 Delivery O2 Flow Rate FiO2 03/11/17 08:00 97.8 77 18 191/91 97 03/11/17 04:00 96.2 80 20 160/80 98 03/11/17 00:52 20 03/11/17 00:00 96.3 81 20 153/84 99 03/10/17 22:00 85 03/10/17 21:24 98 Nasal Cannula 2.00 03/10/17 20:00 98.5 93 20 160/92 98 03/10/17 16:00 98.8 83 20 162/83 99 03/10/17 12:00 98.6 105 24 176/88 99 -: 03/09/17 0500 03/11/17 0750 Physical Exam General Appearance: No Acute Distress, Comfortable Eyes Eye Exam: Pupils Equal Throat Throat Exam: Oral Mucosa [place] & Moist Neck Neck Exam: Neck Supple, Trachea Midline Pulmonary Resp Exam: Breath Sounds Equal, No Distress, Rhonchi, Decreased Bases Cardiology CV Exam: Regular, Normal Sinus Rhythm Gastrointestinal/Abdomen GI Exam: Soft, Non-Tender, Bowel Sounds Present Extremeties Extremities Exam: Moderate Edema, Pitting Edema Neurologic Neuro Exam: Alert, Awake, Oriented Psychiatric Psych Exam: Appropriate Responses Assessment/Plan Assessment Summary: SANTO/Acute Renal Failure Problem List: (1) Respiratory distress (2) Acute renal failure Plan Patient has good urine out put. Creatinine continue to improve. Most likely has SANTO due to ATN or pre renal. Continue IVF and antibiotics. Avoid Nephrotoxins. QUEENIE, ANCA and Complements negative. BP was elevated, started on Amlodipine, I will sign off from Nephrology. Problem Qualifiers (1) Acute renal failure: Qualified Code: N17.9 - Acute renal failure, unspecified acute renal failure type George Atkins MD Mar 11, 2017 11:15
[2017-03-11 12:00] VITALS: BP 129/67; PULSE 80; RESP 18; TEMP 98.7; O2SAT 96
[2017-03-11] MEDS ORDERED: APIX5TAB PO (12:09)
[2017-03-11] MEDS ORDERED: AMLO5 PO (12:09)
[2017-03-11] MEDS ORDERED: NYST1000 SWISH-SWAL (12:10)
--- NOTE | 2017-03-11 12:12 | HHI.DS ---
Discharge Summary Admission Date Mar 06, 2017 at 21:45 Discharge Date: Mar 11, 2017 Admitting Diagnosis Encephalopathy, Sepsis, Hypoxia. (1) Respiratory distress ICD Code: R06.00 Diagnosis: Principal (2) Acute renal failure ICD Code: N17.9 Diagnosis: Principal Procedures none Brief History - From Admission 77 yo WF with PMH of COPD on 4 L home O2, HTN, DM, HLD, peripheral neuropathy, CAD with prior stents who presents to [facility] with shortness of breath. Her daughter states she was not feeling well since 03/03, though may be related to allergies. Today she has been travelling in a car for about 8 hours as she and her family drove from [facility]. She started having a cough today, productive of brown sputum. Did not check her temperature. Denied chest pain. She got to the hotel and became dyspneic and could not get up from a bench where she stopped to rest. Her daughter states she was lethargic and confused. Sats were 92% in the field. She was placed on Bipap on arrival and administered Lasix 40 mg IV and Solu-Medrol 125 mg IV and DuoNeb. After on Bipap ~ 45 min ABG demonstrated hypercapnea with pH 7.30/PaCO2 45/PA O2 to 44. She remains on BiPAP 10 over 5 with FiO2 35%. Her mental status has improved significantly per discussion with RN in patient's daughter. She had a head CT that was negative. VQ scan showed low probability for PE. There is a ventilatory defect in the right base. CXR showed no significant infiltrate. CT chest noncontrast is pending. She denies chest pain or hemoptysis. She does not carry the diagnosis of CHF. She has chronic bipedal edema. Her daughter states her edema is actually currently better than usual. CBC/BMP: 03/09/17 0500 03/11/17 0750 Significant Findings Laboratory Tests Test 03/09/17 03/10/17 03/10/17 03/10/17 05:00 00:32 05:02 12:01 Red Blood Count 3.01 MIL/MM3 (4.00-5.30) Hemoglobin 8.8 GM/DL (11.6-15.3) Hematocrit 26.1 % (35.0-46.0) Chloride Level 108 MEQ/L (98-107) Blood Urea Nitrogen 43 MG/DL (7-18) Creatinine 1.42 MG/DL (0.50-1.00) Estimat Glomerular Filtration 36 ML/MIN (>89) Rate Random Glucose 162 MG/DL (74-106) Calcium Level 8.2 MG/DL (8.5-10.1) Magnesium Level 2.7 MG/DL (1.5-2.5) B-Type Natriuretic Peptide 552 PG/ML (0-100) Troponin I 0.07 NG/ML 0.13 NG/ML (0.02-0.05) (0.02-0.05) Test 03/10/17 03/11/17 17:53 07:50 Troponin I 0.12 NG/ML (0.02-0.05) Blood Urea Nitrogen 23 MG/DL (7-18) Creatinine 1.04 MG/DL (0.50-1.00) Estimat Glomerular Filtration 52 ML/MIN (>89) Rate Random Glucose 172 MG/DL (74-106) Aspartate Amino Transf 14 U/L (15-37) (AST/SGOT) Albumin 2.9 GM/DL (3.4-5.0) Imaging Last Impressions Chest X-Ray 03/09/17 0000 Signed Impressions: Service Date/Time: Thursday, March 09, 2017 23:11 - CONCLUSION: No acute cardiopulmonary disease. KLupe Huston MD Lower Extremity Ultrasound 03/07/17 0000 Signed Impressions: Service Date/Time: Tuesday, March 07, 2017 08:32 - CONCLUSION: No evidence of deep venous thrombosis within the lower extremities. Salbador Pendleton MD Abdomen Ultrasound 03/07/17 0000 Signed Impressions: Service Date/Time: Tuesday, March 07, 2017 08:21 - CONCLUSION: 1. Increased echogenicity of the liver suggesting fatty infiltration. Rob Patten MD Head CT 03/06/171945 Signed Impressions: Service Date/Time: Monday, March 06, 2017 20:01 - CONCLUSION: No acute findings in the brain. Vahid Wiseman MD Lung Scan-VQ Nuclear Medicine 03/06/17 1916 Signed Impressions: Service Date/Time: Monday, March 06, 2017 20:34 - CONCLUSION: 1. Matched ventilation/perfusion defects in the right lung base with the ventilatory defects larger than the perfusion defects. 2. No mismatched perfusion defects. 3. The overall impression is of low probability pulmonary embolism. Vahid Wiseman MD Chest CT 03/06/17 0000 Signed Impressions: Service Date/Time: Monday, March 06, 2017 23:03 - CONCLUSION: Bilateral infiltrates suspicious for pneumonia. Milan Huston MD PE at Discharge GENERAL: This is a well-nourished, well-developed patient, in no apparent distress. CARDIOVASCULAR: Regular rate and regular rhythm without murmurs, gallops, or rubs. RESPIRATORY: diminished air entry in bases. GASTROINTESTINAL: Abdomen soft, non-tender, nondistended. Normal, active bowel sounds MUSCULOSKELETAL: Extremities without clubbing, cyanosis, or edema. NEURO: Alert & Oriented x4 to person, place, time, situation. Moves all ext x4 Hospital Course Acute encephalopathy-resolved Peripheral neuropathy CT brain negative resume gabapentin upon discharge. Acute on chronic hypercapnic respiratory failure- improved. COPD exacerbation O2 home dependency Second hand smoke exposure Community acquired pneumonia continue oxygen and switch to po prednisone. switch to po abx VQ low prob for PE 03/06 CT chest - bilateral infiltrates c/w pneumonia chest pain Coronary artery disease with prior stents Hypertension Hyperlipidemia atrial fibrillation 03/07 2-D echo-EF 5055 percent, moderate mitral regurgitation, moderate tricuspid regurgitation, mild pulmonary hypertension 48mmHg BNP 80 Aspirin daily Continue statin resume coreg added norvasc added eliquis cardiology evaluation appreciated. Obesity Mild AST elevation Hypoalbuminemia Hiatal hernia Fatty liver Advanced to 1800-calorie ADA diet Hyponatremia-resolved acute kidney injury- improved significantly Patient may have CKD but she is unaware of any history of that. Nephrology consulted-Dr. Atkins Acute right lower lobe pneumonia switch to po antibiotic. blood cultures negative and sputum culture with klebsiella and enterobacter 03/06 Urine Legionella and pneumococcal antigen- negative UA negative for evidence of infection. Anemia of unknown chronicity-fairly stable. Diabetes mellitus Hold metformin and resume glimepiride. diarrhea-check the stool for c-diff oral thrush- nystatin swish and swallow PT evaluation and treat patient to be out of bed up and ambulating. Pt Condition on Discharge: Fair Discharge Disposition: Disch w/ Home Health Serv Discharge Time: > 30 minutes Discharge Instructions DIET: Follow Instructions for: Heart Healthy Diet, Diabetic Diet Activities you can perform: Regular-No Restrictions Follow up Referrals: Cardiology PCP Follow-up New Medications: Albuterol 18 GM Inh (Ventolin Hfa 18 GM Inh) 90 Mcg/Act Aer 2 PUFF INH Q4-6H PRN SHORTNESS OF BREATH #1 Ref 0 INHALER Levofloxacin (Levaquin) 250 Mg Tablet 250 MG PO DIRECTED 500 mg po on first day then 250 mg po daily for six days. pneumonia #8 Ref 0 TAB Nystatin Liq (Nystatin Liq) 100,000 unit/ml Susp 5 ML SWISH-SWAL QID Infection Days 5 Ref 0 ML Prednisone (Prednisone) 5 Mg Tab 5 MG PO DIRECTED 40 mg po daily for two days then 30 mg po daily for two days then 20 mg po daily for two days then 10 mg po daily for two days then 5 mg po daily for two days then stop. copd Days 10 Ref 0 TAB Wheelchair (Wheelchair) 1 Mis Mis 1 EA .ROUTE DIRECTED #1 Ref 0 EA Amlodipine (Norvasc) 5 Mg Tab 2.5 MG PO DAILY hypertension Days 30 Ref 0 TAB Apixaban (Eliquis) 5 Mg Tab 5 MG PO BID a-fib Days 30 Ref 0 TAB Changed Medications: Omeprazole (Omeprazole) 20 Mg Cap 20 MG PO DAILY PUD prophylaxis #14 Ref 0 TAB (Changed from: Refills: ) Continued Medications: Albuterol (Albuterol) 2 Mg Tab 2 MG PO TID Asthma Management #[address] Ref [address] (Aspir-81) 81 Mg Tabdr Atorvastatin (Atorvastatin) 40 Mg Tab 40 MG PO HS Cholesterol Management #30 Ref 0 TAB Carvedilol (Carvedilol) 25 Mg Tab 25 MG PO BID #60 Ref 0 TAB Fluticasone-Vilanterol Inh (Breo Ellipta Inh) 100-25 Mcg/Act Inh 1 PUFF INH DAILY Use daily at the same time. #1 Ref 0 INHALER Gabapentin (Gabapentin) 300 Mg Cap 300 MG PO TID #90 Ref 0 CAP Glimepiride (Glimepiride) 2 Mg Tab 2 MG PO BIDAC Blood Sugar Management #60 Ref 0 TAB Magnesium Oxide (Magnesium) 400 Mg Tablet 250 MG PO DAILY Multiple Vitamins W/ Minerals (Cerovite Senior) 1 Tab Tab 10 MEQ PO DAILY Oxycodone (Oxycodone) 10 Mg Tab 10 MG PO Q4HR Pain Management Ref 0 TAB Discontinued Medications: Furosemide (Furosemide) 40 Mg Tab 40 MG PO DAILY #30 Ref 0 TAB Meloxicam (Mobic) 15 Mg Tab 15 MG PO DAILY Ref 0 TAB Metformin (Metformin) 500 Mg Tab 500 MG PO BIDPC With meals Blood Sugar Management #60 Ref 0 TAB Quinapril-Hydrochlorothiazide (Quinapril-Hydrochlorothiazide) 20-12.5 Mg Tab 1 TAB PO DAILY Blood Pressure Management #30 Ref 0 TAB Lance Mccormack MD Mar 11, 2017 12:12
--- NOTE | 2017-03-11 12:12 | HHI.PR ---
Subjective Remarks resting comfortably with no acute distress. denies pain today. no fever. had some diarrhea over night. d/w the RN. Objective Vitals Vital Signs Date Time Temp Pulse Resp B/P Pulse Ox O2 Delivery O2 Flow Rate FiO2 03/11/17 08:00 97.8 77 18 191/91 97 03/11/17 04:00 96.2 80 20 160/80 98 03/11/17 00:52 20 03/11/17 00:00 96.3 81 20 153/84 99 03/10/17 22:00 85 03/10/17 21:24 98 Nasal Cannula 2.00 03/10/17 20:00 98.5 93 20 160/92 98 03/10/17 16:00 98.8 83 20 162/83 99 I/O 03/10/17 03/10/17 03/10/17 03/11/17 03/11/17 03/11/17 07:00 15:00 23:00 07:00 15:00 23:00 Intake Total 480 ml 1227 ml 576 ml Balance 480 ml 1227 ml 576 ml Intake Oral 480 ml 1080 ml 240 ml IV Total 147 ml 336 ml # Voids 3 11 2 # Bowel Movements 3 3 Result Diagram: 03/09/17 0500 03/11/17 0750 Imaging Last Impressions Chest X-Ray 03/09/17 0000 Signed Impressions: Service Date/Time: Thursday, March 09, 2017 23:11 - CONCLUSION: No acute cardiopulmonary disease. Milan Huston MD Lower Extremity Ultrasound 03/07/17 0000 Signed Impressions: Service Date/Time: Tuesday, March 07, 2017 08:32 - CONCLUSION: No evidence of deep venous thrombosis within the lower extremities. Salbador Pendleton MD Abdomen Ultrasound 03/07/17 0000 Signed Impressions: Service Date/Time: Tuesday, March 07, 2017 08:21 - CONCLUSION: 1. Increased echogenicity of the liver suggesting fatty infiltration. Rob Patten MD Head CT 03/06/171945 Signed Impressions: Service Date/Time: Monday, March 06, 2017 20:01 - CONCLUSION: No acute findings in the brain. Vahid Wiseman MD Lung Scan- Nuclear Medicine 03/06/[id number] Signed Impressions: Service Date/Time: Monday, March 06, 2017 20:34 - CONCLUSION: 1. Matched ventilation/perfusion defects in the right lung base with the ventilatory defects larger than the perfusion defects. 2. No mismatched perfusion defects. 3. The overall impression is of low probability pulmonary embolism. Vahid Wiseman MD Chest CT 03/06/17 0000 Signed Impressions: Service Date/Time: Monday, March 06, 2017 23:03 - CONCLUSION: Bilateral infiltrates suspicious for pneumonia. Milan Huston MD Objective Remarks GENERAL: This is a well-nourished, well-developed patient, in no apparent distress. CARDIOVASCULAR: Regular rate and regular rhythm without murmurs, gallops, or rubs. RESPIRATORY: diminished air entry in bases. GASTROINTESTINAL: Abdomen soft, non-tender, nondistended. Normal, active bowel sounds MUSCULOSKELETAL: Extremities without clubbing, cyanosis, or edema. NEURO: Alert & Oriented x4 to person, place, time, situation. Moves all ext x4 Procedures none Medications and IVs Current Medications Furosemide (Lasix Inj) 40 mg ONCE ONCE IV PUSH Last administered on 03/06/17 21:20; Start 03/06/17 at 19:30; Stop 03/06/17 at 19:31; Status DC Methylprednisolone Sodium Succinate (SoluMEDROL INJ) 125 mg ONCE ONCE IV PUSH Last administered on 03/06/17 21:20; Start 03/06/17 at 19:30; Stop 03/06/17 at 19:31; Status DC Albuterol/ Ipratropium 1 ampule 1 ampule Q15M INH Last administered on 19:36; Start 03/06/17 at 19:30; Stop 03/06/17 at 19:46; Status DC Vancomycin HCl 1000 mg/Sodium Chloride 250 ml @ 250 mls/hr ONCE ONCE IV Last administered on 03/06/17 21:28; Start 03/06/17 at 21:15; Stop 03/06/17 at 22:14 ; Status DC Piperacillin Sod/ Tazobactam Sod (Zosyn 2.25 Gm Premix) 50 ml @ 100 mls/hr ONCE ONCE IV Last administered on 03/07/17 00:26; Start 03/06/17 at 22:30; Stop 03/06/17 at 22:59; Status DC Methylprednisolone Sodium Succinate (SoluMEDROL INJ) 40 mg Q8HR IV PUSH Last administered on 03/07/17 04:51; Start 03/07/17 at 06:00; Stop 03/07/17 at 06:00 ; Status DC Albuterol/ Ipratropium (Duoneb Neb) 1 ampule Q6HR NEB NEB Last administered on 03/10/17 21:22; Start 03/06/17 at 22:15; Stop 03/10/17 at 22:15; Status DC Albuterol Sulfate (Albuterol Neb) 2.5 mg Q2HR NEB PRN NEB WHEEZING; Start 03/06 at 22:15 Atorvastatin Calcium (Lipitor) 40 mg HS PO Last administered on 03/10/17 21:09 ; Start 03/07/17 at 21:00 Fluticasone/ Vilanterol 1 puff 1 puff DAILY INH Last administered on 03/11/17 09:00; Start 03/07/17 at 09:00 Sodium Chloride (NS 1000 ml Inj) 1,000 ml @ 100 mls/hr Q10H IV Last administered on 03/09/17 21:36; Start 03/06/17 at 22:33; Status Hold Sodium Chloride (NS Flush) 2 ml UNSCH PRN .XX FLUSH AFTER USING IV ACCESS; Start 03/06/17 at 22:45 Sodium Chloride (NS Flush) 2 ml BID .XX Last administered on 03/11/17 09:46; Start 03/07/17 at 09:00 Acetaminophen (Tylenol) 650 mg Q6H PRN PO PAIN 1-2 AND/OR FEVER >101F; Start at 22:45 Oxycodone/ Acetaminophen (Percocet 5-325 Mg) 1 tab Q4H PRN PO PAIN SCALE 1 TO 5; Start 03/06/17 at 22:45; Stop 03/07/17 at 08:06; Status DC Morphine Sulfate (Morphine Inj) 2 mg Q2H PRN IV PAIN SCALE 6 TO 10 Last administered on 03/09/17 21:26; Start 03/06/17 at 22:45 Pantoprazole Sodium (Protonix Inj) 40 mg DAILY IV Last administered on 09:43; Start 03/07/17 at 09:00 Ondansetron HCl (Zofran Inj) 4 mg Q6H PRN IV NAUSEA OR VOMITING Last administered on 03/08/17 21:32; Start 03/06/17 at 22:45 Heparin Sodium (Porcine) (Heparin Inj) 5,000 units Q12H SQ Last administered on 03/11/17 09:43; Start 03/06/17 at 23:00 Miscellaneous Information 1 Q361D XX ; Start 03/06/17 at 22:45 Chlorhexidine Gluconate (Chlorhexidine 2% Cloth) 3 pack Taper DAILY@04 TOP Last administered on 03/11/17 03:21; Start 03/07/17 at 04:00; Stop 03/03/18 at 03:59 Chlorhexidine Gluconate (Chlorhexidine 2% Cloth) 3 pack UNSCH PRN TOP HYGIENIC CARE; Start 03/06/17 at 22:45 Senna/Docusate Sodium (Sarahi-Colace) 1 tab BID PO Last administered on 21:37; Start 03/07/17 at 09:00; Stop 03/11/17 at 11:14; Status DC Magnesium Hydroxide (Milk Of Magnesia Liq) 30 ml Q12H PRN PO MILD - MODERATE CONSTIPATION; Start 03/06/17 at 22:45 Sennosides (Senokot) 17.2 mg Q12H PRN PO MODERATE - SEVERE CONSTIPATION; Start 03/06/17 at 22:45 Bisacodyl (Dulcolax Supp) 10 mg DAILY PRN RECTAL SEVERE CONSITIPATION; Start at 22:45 Lactulose (Lactulose Liq) 30 ml DAILY PRN PO SEVERE CONSITIPATION; Start at 22:45 Aspirin 81 mg 81 mg DAILY CHEW Last administered on 03/11/17 09:41; Start 08/12 at 22:45 Azithromycin 500 mg/Sodium Chloride 250 ml @ 250 mls/hr Q24H IV Last administered on 03/10/17 22:19; Start 03/06/17 at 23:00 Piperacillin Sod/ Tazobactam Sod (Zosyn 2.25 Gm Premix) 50 ml @ 100 mls/hr Q6H IV Last administered on 03/11/17 09:46; Start 03/07/17 at 04:00 Dextrose (D50w (Vial) Inj) 50 ml UNSCH PRN IV HYPOGLYCEMIA-SEE COMMENTS; Start 03/06/17 at 23:45; Stop 03/07/17 at 02:15; Status DC Glucagon (Glucagon Inj) 1 mg UNSCH PRN OTHER HYPOGLYCEMIA-SEE COMMENTS; Start 03/06/17 at 23:45; Stop 03/07/17 at 02:15; Status DC Insulin Aspart (NovoLOG SUPPLEMENTAL SCALE) 1 Q6H SQ ; Start 03/06/17 at 23:45; Stop 03/07/17 at 02:13; Status DC Dextrose (D50w (Vial) Inj) 50 ml UNSCH PRN IV HYPOGLYCEMIA-SEE COMMENTS; Start 03/07/17 at 02:15 Glucagon (Glucagon Inj) 1 mg UNSCH PRN OTHER HYPOGLYCEMIA-SEE COMMENTS; Start 03/07/17 at 02:15 Insulin Aspart (NovoLOG SUPPLEMENTAL SCALE) 1 Q6H SQ Last administered on 03:39; Start 03/07/17 at 02:15; Stop 03/07/17 at 05:40; Status DC Insulin Aspart (NovoLOG SUPPLEMENTAL SCALE) 1 Q4H SQ Last administered on 09:50; Start 03/07/17 at 06:00 Methylprednisolone Sodium Succinate (SoluMEDROL INJ) 40 mg Q12H IV PUSH Last administered on 03/11/17 05:36; Start 03/07/17 at 06:00 Oxycodone/ Acetaminophen (Percocet 5-325 Mg) 1 tab Q6H PRN PO PAIN 3-10 Last administered on 03/11/17 09:59; Start 03/07/17 at 08:00 Enalaprilat (Vasotec Inj) 2.5 mg ONCE ONCE IV PUSH Last administered on 22:19; Start 03/09/17 at 22:15; Stop 03/09/17 at 22:16; Status DC Nitroglycerin (Nitrostat Sl) 0.4 mg Q5M PRN SL CHEST PAIN Last administered on 03/09/17 23:16; Start 03/09/17 at 23:00 Carvedilol (Coreg) 25 mg BID PO Last administered on 03/11/17 09:41; Start at 14:00 Morphine Sulfate (Morphine Inj) 2 mg NOW ONCE IV Last administered on 17:48; Start 03/10/17 at 18:00; Stop 03/10/17 at 18:01; Status DC Amlodipine Besylate (Norvasc) 2.5 mg DAILY PO Last administered on 03/11/17 09 :41; Start 03/11/17 at 09:00 Apixaban (Eliquis) 5 mg BID PO Last administered on 03/11/17 09:41; Start at 09:00 Miscellaneous (Pill Splitter) 1 ea UNSCH PRN OTHER SEE LABEL COMMENTS; Start at 07:45 Date of Insertion: Mar 06, 2017 A/P Assessment and Plan A/P Acute encephalopathy-resolved Peripheral neuropathy CT brain negative resume gabapentin upon discharge. Acute on chronic hypercapnic respiratory failure- improved. COPD exacerbation O2 home dependency Second hand smoke exposure Community acquired pneumonia continue oxygen and switch to po prednisone. switch to po abx VQ low prob for PE 03/06 CT chest - bilateral infiltrates c/w pneumonia chest pain Coronary artery disease with prior stents Hypertension Hyperlipidemia atrial fibrillation 03/07 2-D echo-EF 5055 percent, moderate mitral regurgitation, moderate tricuspid regurgitation, mild pulmonary hypertension 48mmHg BNP 80 Aspirin daily Continue statin resume coreg added norvasc added eliquis cardiology evaluation appreciated. Obesity Mild AST elevation Hypoalbuminemia Hiatal hernia Fatty liver Advanced to 1800-calorie ADA diet Hyponatremia-resolved acute kidney injury- improved significantly Patient may have CKD but she is unaware of any history of that. Nephrology consulted-Dr. Atkins Acute right lower lobe pneumonia switch to po antibiotic. blood cultures negative and sputum culture with klebsiella and enterobacter 03/06 Urine Legionella and pneumococcal antigen- negative UA negative for evidence of infection. Anemia of unknown chronicity-fairly stable. Diabetes mellitus Hold metformin and resume glimepiride. diarrhea-check the stool for c-diff oral thrush- nystatin swish and swallow PT evaluation and treat patient to be out of bed up and ambulating. Discharge Planning dc home this evening if stool is negative for c-diff. see med list. f/u; pcp. d/w the patient and her daughter. d/w the RN. time spent 35 min. Lance Mccormack MD Mar 11, 2017 12:12
[2017-03-11] MEDS ORDERED: OMEP20CA2 PO (12:18)
[2017-03-11 16:00] VITALS: BP 125/69; PULSE 88; RESP 18; TEMP 97.7; O2SAT 97
[2017-03-11 16:28] LABS: C. DIFF EPI 027 PRESUMPTIVE NEGATIVE (NEGATIVE); C. DIFF TOXIN PCR NEGATIVE (NEGATIVE)
--- NOTE | 2017-03-11 21:45 | HHI.PR ---
Addendum to Inpatient Note Addendum Reason: Additional Documentation Additional Information I received a call from the pharmacist at [facility] following the patient's hospital d/c. 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 The pharmacist inquired about Xarelto as the patient's insurance would cover that, therefore I authorized the substitution with Xarelto 20 mg p.o. daily. I instructed the pharmacist to advise the patient that she will need very close supervision while taking this medication as she had some acute renal failure noted during this admission which had resolved which was thought to be prerenal/ATN. eGFR was 52 on discharge. The pharmacist verbalized understanding and indicated she would educate the patient. . Maria Guadalupe Lamar Mar 11, 2017 21:45
--- NOTE | 2017-03-11 22:28 | EKG ---
Date Performed: 03/11/2017 Time Performed: 06:03:56 PTAGE: 77 years EKG: Atrial fibrillation Abnormal ECG PREVIOUS TRACING : 03/10/2017 15.50 DOCTOR: Nelly Schneider Interpretating Date/Time 03/11/2017 22:26:26
--- NOTE | 2017-03-11 22:47 | EKG ---
Date Performed: 03/10/2017 Time Performed: 15:50:24 PTAGE: 77 years EKG: ATRIAL FIBRILLATION MINIMAL ST DEPRESSION ABNORMAL RHYTHM ECG PREVIOUS TRACING : 03/09/2017 23.18 DOCTOR: Nelly Schneider Interpretating Date/Time 03/11/2017 22:45:31
== END 2017-03-11 18:42 | disposition home health service (06) | DRG 190 ==
LOC: NEPC 17:35 → NEDA 21:45 → HIMN 03-07 02:25 → HOCA 03-09 11:42
PROVIDERS: ADMIT Internal Medicine; ATTEND Internal Medicine
PROC: 5A09457 Assistance with Respiratory Ventilation, 24-96 Consecutive Hours, Continuous Positive Airway Pressure (ICD-10-PCS; principal; 2017-03-06)
DX: J44.0 Chronic obstructive pulmonary disease with (acute) lower respiratory infection (principal); N17.0 Acute kidney failure with tubular necrosis; J96.22 Acute and chronic respiratory failure with hypercapnia; J18.9 Pneumonia, unspecified organism; G93.40 Encephalopathy, unspecified; I48.0 Paroxysmal atrial fibrillation; B37.0 Candidal stomatitis; E11.22 Type 2 diabetes mellitus with diabetic chronic kidney disease; E87.1 Hypo-osmolality and hyponatremia; E11.42 Type 2 diabetes mellitus with diabetic polyneuropathy; E88.09 Other disorders of plasma-protein metabolism, not elsewhere classified; E78.5 Hyperlipidemia, unspecified; I25.10 Atherosclerotic heart disease of native coronary artery without angina pectoris; Z96.653 Presence of artificial knee joint, bilateral; N18.9 Chronic kidney disease, unspecified; Z96.642 Presence of left artificial hip joint; R19.7 Diarrhea, unspecified; E66.01 Morbid (severe) obesity due to excess calories; K21.9 Gastro-esophageal reflux disease without esophagitis; D64.9 Anemia, unspecified; J44.1 Chronic obstructive pulmonary disease with (acute) exacerbation; I12.9 Hypertensive chronic kidney disease with stage 1 through stage 4 chronic kidney disease, or unspecified chronic kidney disease; Z77.22 Contact with and (suspected) exposure to environmental tobacco smoke (acute) (chronic); Z95.5 Presence of coronary angioplasty implant and graft; Z99.81 Dependence on supplemental oxygen; Z79.84 Long term (current) use of oral hypoglycemic drugs; Z79.82 Long term (current) use of aspirin
CPT/HCPCS: 36600; 70450; 71010; 71250; 76700; 76937; 78582; 80048; 80053; 81001; 82150; 82550; 82552; 82570; 82805; 82948; 83520; 83605; 83735; 83880; 84100; 84300; 84484; 85007; 85025; 85027; 86021; 86038; 86160; 87040; 87070; 87077; 87186; 87205; 87449; 87493; 87641; 93005; 93306; 93970; 94002; 94003; 94640; 94664; 99285; A9540; A9567; C9113; J0456; J1644; J1815; J1940; J2270; J2405; J2543; J2920; J2930; J3370; J7030; J7050